=== PATIENT | female | born 1960 | race Caucasian/White ===

== ENCOUNTER 2017-08-17 07:58 | Outpatient (CLI) | payer MEDICARE, MEDICAID ==
[2017-08-17 13:57] LABS: BASOPHILS # (AUTO) 0.1 10^3/uL (0.0-0.1); BASOPHILS % (AUTO) 0.6 %; EOSINOPHILS # (AUTO) 0.1 10^3/uL (0.0-0.7); EOSINOPHILS % (AUTO) 1.6 %; HCT - HEMATOCRIT 39.4 % (37.0-47.0); HGB - HEMOGLOBIN 13.3 g/dL (12.0-16.0); LYMPHOCYTES # (AUTO) 2.7 10^3/uL (1.5-3.5); MEAN CORPUSCULAR HEMOGLOBIN 32.1 pg (27.0-31.0); MEAN CORPUSCULAR HGB CONC 33.9 g/dL (32.0-36.0); MEAN CORPUSCULAR VOLUME 94.9 fL (81.0-99.0); MEAN PLATELET VOLUME 8.5 fL (7.9-10.8); MONOCYTES # (AUTO) 0.5 10^3/uL (0.0-1.0); MONOCYTES % (AUTO) 6.8 %; NEUTROPHILS # (AUTO) 4.6 10^3/uL (1.5-6.6); RED BLOOD COUNT 4.15 10^6/uL (4.20-5.40)
[2017-08-17 14:25] LABS: ALBUMIN/GLOBULIN RATIO 1.5 (1.0-2.2); BILIRUBIN,TOTAL 0.5 mg/dL (0.2-1.0); BUN - BLOOD UREA NITROGEN 14 mg/dL (6-20); CALCIUM 9.3 mg/dL (8.5-10.3); CARBON DIOXIDE - CO2 29 mmol/L (21-32); CHLORIDE 105 mmol/L (101-111); CHOL/HDL RATIO 3.4 (<4.4); CHOLESTEROL 174 mg/dL; CREATININE 0.7 mg/dL (0.4-1.0); GFR - MDRD 87 (>89); GLUCOSE 89 mg/dL (70-100); HDL CHOLESTEROL 51 mg/dL; LDL/HDL RATIO 1.8 (<4.4); POTASSIUM 4.2 mmol/L (3.5-5.0); SODIUM 140 mmol/L (135-145); TOTAL PROTEIN 7.1 g/dL (6.7-8.2); TRIGLYCERIDES 167 mg/dL; VLDL CHOLESTEROL 33 mg/dL
== END 2017-08-17 07:59 | disposition home or self-care (01) ==
LOC: LAB.N 07:58
PROVIDERS: ATTEND Nurse Practitioner Gerontology
DX: I10 Essential (primary) hypertension (principal)
CPT/HCPCS: 36415; 80053; 80061; 84443; 85025

== ENCOUNTER 2017-12-24 07:39 | Day surgery (SDC) | payer MEDICARE, MEDICAID ==
[2017-12-24] MEDS ORDERED: LACTATED RINGERS 1,000 ML IV ONE ×3 (08:01→10:01)
--- NOTE | 2017-12-24 09:22 | HISTORY & PHYSICAL EXAMINATION ---
HPI - History of Present Illness HPI Comment/Other: Patient is here for first screening colonoscopy. Current Meds: CHANTIX 1 MG ORAL TABLET (VARENICLINE TARTRATE) 1/2 tab by mouth daily for 3 days, then 1/2 tab twice daily for 4 days, then 1 tab twice daily Allergies: Past Medical History: Reviewed history from 11/14/2016 and no changes required: Retinitis pigmentosa HTN Cancer Loose/Fragile Depression Anxiety Cervical cancer Past Surgical History: Digit surgery Family History Summary: Reviewed history Last on 09/07/2017 and no changes required:10/27/2017 Mother (biol.) - Has Family History of Hypertension - Entered On: 11/14/2016 Mother (biol.) - Has Family History of Other Cancer - Entered On: 11/14/2016 Father (biol.) - Has Family History of Alcoholism - Entered On: 11/14/2016 Mother (biol.) - Has Family History of Other Medical Problems - Cancer, melanoma - Entered On: 10/27/2017 Social History: Reviewed history from 06/01/2017 and no changes required: Alcohol Use - yes- rare Smoking History: Patient currently smokes every day. Patient has been counseled to quit. 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 Alcohol use: no Exercise: yes Times per week: 7 Type of Exercise: dancing Physical Exam General: well developed, well nourished, in no acute distress Lungs: clear bilaterally to A & P Heart: regular rate and rhythm, S1, S2 without murmurs, rubs, gallops, or clicks Abdomen: bowel sounds positive; abdomen soft and non-tender without masses, organomegaly, or hernias noted Pulses: pulses normal in all 4 extremities Extremities: no clubbing, cyanosis, edema, or deformity noted with normal full range of motion of all joints Cervical Nodes: no significant adenopathy Psych: alert and cooperative; normal mood and affect; normal attention span and concentration Impression & Recommendations: Problem # 1: screening for colon cancer will proceed with colonoscopy, PMH/PSH - Past Medical History Cardiovascular: positive: None Respiratory: positive: None Endocrine/Autoimmune: positive: None GI: positive: None : positive: None HEENT: positive: Other Psych: positive: None Musculoskeletal: positive: None Derm: positive: None MRSA Hx?: No - 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
[2017-12-24] MEDS ORDERED: MIDAZOLAM 2 MG/2 ML VIAL IVP ONE (09:32)
[2017-12-24] MEDS ORDERED: fentaNYL 100 MCG/2 ML VIAL IVP ONE (09:32)
[2017-12-24] MEDS ORDERED: PROPOFOL 200 MG/20 ML VIAL IVP ONE (10:20)
[2017-12-24 10:36] VITALS: BP 113/61
== END 2017-12-24 07:40 | disposition home or self-care (01) ==
LOC: SDS 07:39
PROVIDERS: ATTEND Surgery
PROC: 0DJD8ZZ Inspection of Lower Intestinal Tract, Via Natural or Artificial Opening Endoscopic (ICD-10-PCS; principal; 2017-12-24 08:45)
DX: Z12.11 Encounter for screening for malignant neoplasm of colon (principal); K57.30 Diverticulosis of large intestine without perforation or abscess without bleeding; K64.8 Other hemorrhoids; Z87.891 Personal history of nicotine dependence
CPT/HCPCS: G0121; J7120

== ENCOUNTER 2019-05-08 04:32 | Emergency (ER) | payer MEDICARE, MEDICAID ==
[2019-05-08 04:41] VITALS: BP 153/96
--- NOTE | 2019-05-08 05:35 | ED Physician Documentation ---
PD HPI URI - Stated complaint Stated Complaint: COUGH - Chief complaint Chief Complaint: Resp - History obtained from History obtained from: Patient - History of Present Illness Timing - onset: How many weeks ago (2) Timing details: Gradual onset Pain level now: 0 Associated symptoms: Chills, Sweats, Dry cough (despite chest congestion). 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 - Present Medications Home Medications: Ambulatory Orders Medication Instructions Recorded Confirmed Lisinopril 5 mg PO DAILY 05/08/19 05/08/19 guaiFENesin/CODEINE [Robitussin AC] 5 - 10 ml PO Q6H PRN #120 udc 05/08/19 - Allergies Allergies/Adverse Reactions: Allergies Allergy/AdvReac Type Severity Reaction Status Date / Time No Known Drug Allergies Allergy Verified 05/08/19 04:41 - Social History Does the pt smoke?: Yes Smoking Status: Current every day smoker Does the pt drink ETOH?: No ETOH Use: Beer Does the pt have substance abuse?: Yes Substance Use and Type: Marijuana - Immunizations Immunizations are current?: Yes - POLST Patient has POLST: No PD ED PE NORMAL - Vitals Vital signs reviewed: Yes - General General: Alert and oriented X 3, No acute distress, Well developed/nourished - HEENT HEENT: Moist mucous membranes - Neck Neck: Supple, no meningeal sign - Cardiac Cardiac: RRR, No murmur - Respiratory Respiratory: No respiratory distress, Other (RLL faint rhonchi) Results - Vitals Vitals: Oxygen O2 Source Room air - Rads (name of study) chest xray Radiology: Prelim report reviewed, See rad report PD MEDICAL DECISION MAKING - ED course Complexity details: reviewed results, re-evaluated patient, considered differential, d/w patient Departure - Departure Disposition: 01 Home, Self Care Clinical Impression: Bronchitis Condition: Good Instructions: ED Upper Resp Infec No Abx Tx Follow-Up: Magdalene Andujar ARNP [Primary Care Provider] - Prescriptions: guaiFENesin/CODEINE [Robitussin AC] 5 - 10 ml PO Q6H PRN #120 udc PRN Reason: Cough Discharge Date/Time: 05/08/19 07:42
--- NOTE | 2019-05-08 06:29 | XRAY Report ---
Reason: cough, chest congestion Procedure Date: 05/08/2019 Accession Number: [id number] / [id number] Procedure: XR - Chest 2 View X-Ray CPT Code: 43928 FULL RESULT: EXAM: CHEST RADIOGRAPHY EXAM DATE: 05/08/2019 06:17 AM. CLINICAL HISTORY: Cough, chest congestion. Nonproductive cough. COMPARISON: None. TECHNIQUE: 2 views. FINDINGS: Lungs/Pleura: No focal opacities evident. No pleural effusion. No pneumothorax. Normal volumes. Mediastinum: Heart and mediastinal contours are unremarkable. Other: Possible posterior medial left aiyana-diaphragmatic hernia. IMPRESSION: No acute cardiopulmonary abnormality demonstrated. RADIA
[2019-05-08] MEDS ORDERED: guaiFENesin/CODEINE 5 ML UDC PO STA (07:23)
== END 2019-05-08 07:42 | disposition home or self-care (01) ==
LOC: ED 04:32
DX: J40 Bronchitis, not specified as acute or chronic (principal); I10 Essential (primary) hypertension; F17.200 Nicotine dependence, unspecified, uncomplicated
CPT/HCPCS: 71046; 99281; 99283; A9270

== ENCOUNTER 2019-10-28 14:25 | Outpatient (CLI) | payer MEDICARE, MEDICAID ==
--- NOTE | 2019-10-28 15:17 | XRAY Report ---
Reason: RIB PAIN Procedure Date: 10/28/2019 Accession Number: [id number] / [id number] Procedure: XRN - Ribs w/PA Chest LT CPT Code: Final Report FULL RESULT: EXAM: LEFT RIB RADIOGRAPHY EXAM DATE: 10/28/2019 02:56 PM. CLINICAL HISTORY: RIB PAIN. Left rib pain. COMPARISON: CHEST 2 VIEW 05/08/2019 6:08 AM. TECHNIQUE: 2 views of the ribs. FINDINGS: Bones: No left rib fracture evident. Convex left upper thoracic scoliosis. Lungs: No focal opacities. No pneumothorax. No pleural effusions. Mediastinum: Heart and mediastinal contours are unremarkable. Other: None. IMPRESSION: No left rib fracture evident. RADIA
== END 2019-10-28 14:26 | disposition home or self-care (01) ==
LOC: DI.N 14:25
PROVIDERS: ATTEND Family Medicine
DX: R07.81 Pleurodynia (principal)

== ENCOUNTER 2020-09-26 07:21 | Outpatient (CLI) | payer MEDICARE, MEDICAID ==
[2020-09-26 11:44] LABS: BASOPHILS % (AUTO) 0.4 %; EOSINOPHILS # (AUTO) 0.2 10^3/uL (0.0-0.7); EOSINOPHILS % (AUTO) 1.6 %; HGB - HEMOGLOBIN 11.8 g/dL (12.0-16.0); LYMPHOCYTES # (AUTO) 2.2 10^3/uL (1.5-3.5); LYMPHOCYTES % (AUTO) 24.1 %; MEAN CORPUSCULAR HEMOGLOBIN 33.1 pg (27.0-31.0); MEAN CORPUSCULAR HGB CONC 31.9 g/dL (32.0-36.0); MEAN CORPUSCULAR VOLUME 103.6 fL (81.0-99.0); MEAN PLATELET VOLUME 10.3 fL (7.9-10.8); MONOCYTES % (AUTO) 11.1 %; NEUTROPHILS # (AUTO) 5.7 10^3/uL (1.5-6.6); NEUTROPHILS % (AUTO) 62.4 %; PLT - PLATELET COUNT 310 10^3/uL (130-450); RED BLOOD COUNT 3.57 10^6/uL (4.20-5.40); RED CELL DISTRIBUTION WIDTH 13.5 % (12.0-15.0); WHITE BLOOD COUNT 9.2 x10^3/uL (4.8-10.8)
[2020-09-26 12:00] LABS: ALBUMIN 3.7 g/dL (3.2-5.5); ALBUMIN/GLOBULIN RATIO 1.1 (1.0-2.2); ALKALINE PHOSPHATASE 63 IU/L (42-121); ALT ALANINE AMINOTRANSFERASE 29 IU/L (10-60); AST ASPARTATE AMINOTRANSFERASE 29 IU/L (10-42); BILIRUBIN,TOTAL 0.5 mg/dL (0.2-1.0); BUN - BLOOD UREA NITROGEN 13 mg/dL (6-20); CARBON DIOXIDE - CO2 26 mmol/L (21-32); CHLORIDE 105 mmol/L (101-111); CHOLESTEROL 155 mg/dL; CREATININE 0.6 mg/dL (0.4-1.0); GLUCOSE 97 mg/dL (70-100); HDL CHOLESTEROL 76 mg/dL; LDL CHOLESTEROL,CALCULATED 61 mg/dL; LDL/HDL RATIO 0.8 (<4.4); SODIUM 140 mmol/L (135-145); VLDL CHOLESTEROL 18 mg/dL
== END 2020-09-26 23:59 | disposition home or self-care (01) ==
LOC: LAB.WCP 07:21
PROVIDERS: ATTEND Nurse Practitioner Family
DX: I10 Essential (primary) hypertension (principal)
CPT/HCPCS: 36415; 80053; 80061; 83721; 84443; 85025

== ENCOUNTER 2020-11-14 03:02 | Emergency (ER) | payer MEDICARE, MEDICAID ==
--- NOTE | 2020-11-14 03:18 | ED Physician Documentation ---
PD HPI BACK PAIN - Stated complaint Stated Complaint: BACK PX - Chief complaint Chief Complaint: Back Pain - History obtained from History obtained from: Patient - History of Present Illness Timing - onset: How many weeks ago (1.5 weeks ago) Timing - details: Abrupt onset Pain level max: 8 Pain level now: 6 Location: Lower Associated symptoms: No: Fever, Weakness, Numbness, Incontinent of urine, Unable to urinate, Hematuria, Incontinent of stool Improves with: Rest Worsened by: Movement Contributing factors: Lifting Recently seen: Not recently seen - Additional information Additional information: c/o sudden onset mid/lower back pain 10 days ago when lifting heavy furniture. pain was severe and constant, limiting her to basic ADL, but then improving past few days and thus patient vacuumed her house today. this activity caused the pain to rapidly again become severe. denies numbness, weakness, fever, bowel or bladder incontinence. 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 - Present Medications Home Medications: Ambulatory Orders Medication Instructions Recorded Confirmed guaiFENesin/CODEINE [Robitussin AC] 5 - 10 ml PO Q6H PRN #120 udc 05/08/19 11/14/20 lisinopriL [Lisinopril] 5 mg PO DAILY 05/08/19 11/14/20 Cyclobenzaprine [Flexeril] 10 mg PO TID PRN #20 tablet 11/14/20 Oxycodone HCl/Acetaminophen 1 - 2 each PO Q6H PRN #14 tablet 11/14/20 [Percocet 5-325 mg Tablet] diazePAM [Valium] 5 mg PO QPM PRN #15 tablet 11/14/20 - Allergies Allergies/Adverse Reactions: Allergies Allergy/AdvReac Type Severity Reaction Status Date / Time No Known Drug Allergies Allergy Verified 05/08/19 04:41 - Social History Does the pt smoke?: Yes Smoking Status: Current every day smoker Does the pt drink ETOH?: No Does the pt have substance abuse?: Yes - Immunizations Immunizations are current?: Yes - POLST Patient has POLST: No PD ED PE NORMAL - Vitals Vital signs reviewed: Yes - General General: Alert and oriented X 3, No acute distress, Well developed/nourished - Abdomen Abdomen: Soft, Non tender - Back Back: No spinal TTP - Neuro Neuro: No motor deficit, No sensory deficit, Other (2+/4 bilateral patellar DTR, 5/5 bilateral dorsi/plantarflexion) Results - Vitals Vitals: Vital Signs - 24 hr 11/14/20 11/14/20 11/14/20 03:04 03:17 05:17 Temperature 36.8 C 36.8 C 36.8 C Heart Rate 79 79 72 Respiratory 20 20 19 Rate Blood Pressure 179/68 H 179/68 H 172/70 H O2 Saturation 97 97 98 11/14/20 06:21 Temperature 36.8 C Heart Rate 72 Respiratory 19 Rate Blood Pressure 172/70 H O2 Saturation 98 Oxygen O2 Source Room air PD MEDICAL DECISION MAKING - ED course Complexity details: reviewed results, re-evaluated patient, considered differential, d/w patient Departure - Departure Disposition: 01 Home, Self Care Clinical Impression: Lumbar compression fracture Condition: Good Instructions: ED Fx Comp Vertebral Follow-Up: CARSON SOLANO, MSN, BRAND COORDINATOR [Primary Care Provider] - Within 1 week Prescriptions: Cyclobenzaprine [Flexeril] 10 mg PO TID PRN #20 tablet PRN Reason: Spasms Oxycodone HCl/Acetaminophen [Percocet 5-325 mg Tablet] 1 - 2 each PO Q6H PRN #14 tablet PRN Reason: pain diazePAM [Valium] 5 mg PO QPM PRN #15 tablet PRN Reason: Spasms Comments: use the percocet for pain as needed per prescription instructions. You can use the flexeril as per prescription instructions during the day. At night before bed, you can take a dose of the valium IN PLACE of the flexeril. The valium will also have a muscle relaxant effect but also typically causes some degree of d rowsiness, which will might help you get some sleep while addressing the muscle spasm component of your pain. These medications are only meant for short-term use. Follow up with your primary care provider even if you are feeling better. Discharge Date/Time: 11/14/20 06:21
[2020-11-14] MEDS ORDERED: CYCLOBENZAPRINE 10 MG TABLET PO STA (03:45)
[2020-11-14] MEDS ORDERED: oxyCODONE 5 MG TABLET PO STA (03:45)
[2020-11-14 05:39] VITALS: BP 172/70
--- NOTE | 2020-11-14 08:15 | XRAY Report ---
PROCEDURE: Lumbar Spine 2 View INDICATIONS: low back pain TECHNIQUE: 3 views of the lumbar spine were acquired. COMPARISON: None. FINDINGS: Bones: 5 [id number] vertebrae are present. There is normal bony alignment. There is a L1 verte bral body compression fracture that results in a reduction of the vertebral height, measuring 2.2 cm at L1 and 3.7 cm at the L2, representing a 61% height reduction at L1, chronicity uncertain. No susp icious bony lesions. Soft tissues: Overlying bowel gas pattern is normal. No suspicious soft tissue calcifications. IMPRESSION: Expected degenerative disc disease and facet osteoarthritis over the lower half of the L S-spine for age. There is a chronicity-uncertain L1 compression fracture with a 61% height reduction when compared to the normal-appearing L2 immediately. MR scanning could establish acute versus chroni c status of this abnormality, if clinically desired. Reviewed by: Ankur Cui MD on 11/14/2020 8:13 AM PST Approved by: Ankur Cui MD on 11/14/2020 8:13 AM PST Station ID: [id number]
== END 2020-11-14 06:21 | disposition home or self-care (01) ==
LOC: ED 03:02
DX: M48.56XA Collapsed vertebra, not elsewhere classified, lumbar region, initial encounter for fracture (principal); X50.0XXA Overexertion from strenuous movement or load, initial encounter; Y93.89 Activity, other specified; M51.36 Other intervertebral disc degeneration, lumbar region; I10 Essential (primary) hypertension; F17.200 Nicotine dependence, unspecified, uncomplicated
CPT/HCPCS: 72100; 99283; A9270

== ENCOUNTER 2020-11-19 10:50 | Emergency (ER) | payer MEDICARE, MEDICAID ==
[2020-11-19 11:33] VITALS: BP 175/110
[2020-11-19] MEDS ORDERED: DEXAMETHASONE 10 MG/ML VIAL PO STA (13:09)
[2020-11-19] MEDS ORDERED: CHERRY SYRUP 10 ML UDC PO ONE (13:09)
[2020-11-19] MEDS ORDERED: KETOROLAC 60 MG/2 ML VIAL IM STA (13:09)
--- NOTE | 2020-11-19 13:12 | ED Physician Documentation ---
PD HPI BACK PAIN - Stated complaint Stated Complaint: BACK SPASM - Chief complaint Chief Complaint: Back Pain - History obtained from History obtained from: Patient - History of Present Illness Timing - onset: How many weeks ago (2) Timing - duration: Weeks (2) Timing - details: Abrupt onset, Still present Location: Lower Quality: Pain, Spasm, Sharp Associated symptoms: No: Fever, Weakness, Numbness, Incontinent of urine, Unable to urinate, Hematuria, Incontinent of stool Improves with: Rest, Ice Worsened by: Movement Contributing factors: Other (compression fracture at onset .) Similar symptoms before: Diagnosis - Additional information Additional information: 60-year-old female with acute onset of back pain 12 days ago has a compression fracture in L1 and she has run out of her pain medications and is unable to help with her disabled . She was seen on the in the emergency department and had x-ray done at that time showing the L1 compression fracture. She indicates that her initial injury was a lifting injury and she felt the onset immediately. She subsequently worsened over several days. 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 - Present Medications Home Medications: Ambulatory Orders Medication Instructions Recorded Confirmed lisinopriL [Lisinopril] 5 mg PO DAILY 05/08/19 11/14/20 diazePAM [Valium] 5 mg PO QPM PRN #15 tablet 11/14/20 11/19/20 Cyclobenzaprine [Flexeril] 10 mg PO TID PRN #20 tablet 11/19/20 Oxycodone HCl/Acetaminophen 1 - 2 each PO Q6H PRN #14 tablet 11/19/20 [Percocet 5-325 mg Tablet] amLODIPine [Norvasc] 11/19/20 - Allergies Allergies/Adverse Reactions: Allergies Allergy/AdvReac Type Severity Reaction Status Date / Time No Known Drug Allergies Allergy Verified 05/08/19 04:41 - Social History Does the pt smoke?: Yes Smoking Status: Current every day smoker Does the pt drink ETOH?: No Does the pt have substance abuse?: Yes - Immunizations Immunizations are current?: Yes - POLST Patient has POLST: No PD ED PE NORMAL - Vitals Vital signs reviewed: Yes (Hypertensive) - General General: Alert and oriented X 3, Well developed/nourished, Other (Appears to be in pain) - HEENT HEENT: Atraumatic, PERRL, EOMI - Respiratory Respiratory: No respiratory distress - Back Back: No CVA TTP, Other (midline tenerness at the bra line and tenderness to the paraspineous muscle of the lower lumbar spine. 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, No motor deficit, No sensory deficit, Normal speech Eye Opening: Spontaneous Motor: Obeys Commands Verbal: Oriented GCS Score: 15 - Psych Psych: Normal mood, Normal affect Results - Vitals Vitals: Vital Signs - 24 hr 11/19/20 11:30 Temperature 36.3 C L Heart Rate 100 Respiratory 22 Rate Blood Pressure 175/110 H O2 Saturation 97 Oxygen O2 Source Room air PD MEDICAL DECISION MAKING - ED course Complexity details: reviewed old records, reviewed results, re-evaluated patient, considered differential, d/w patient ED course: 60-year-old female with a recent compression fracture back is having difficulty with pain control she has run out of her pain medications and she is not able to get pain medication through her primary care doctor as they are unable to see her today. She is administered dexamethasone and Toradol here in the emergency department we will replace her back on the oxycodone and Flexeril. Departure - Departure Disposition: 01 Home, Self Care Clinical Impression: Lumbar compression fracture Qualifiers: Encounter type: sequela Lumbar vertebra fracture level: L1 Qualified Code(s): S32.010S - Wedge compression fracture of first lumbar vertebra, sequela Instructions: ED Fx Comp Vertebral Follow-Up: CARSON SOLANO, MSN, FANCY WIRE DRAWER [Primary Care Provider] - Prescriptions: Cyclobenzaprine [Flexeril] 10 mg PO TID PRN #20 tablet PRN Reason: Spasms Oxycodone HCl/Acetaminophen [Percocet 5-325 mg Tablet] 1 - 2 each PO Q6H PRN #14 tablet PRN Reason: pain Discharge Date/Time: 11/19/20 13:58
== END 2020-11-19 13:58 | disposition home or self-care (01) ==
LOC: ED 10:50
DX: S32.010A Wedge compression fracture of first lumbar vertebra, initial encounter for closed fracture (principal); X50.0XXA Overexertion from strenuous movement or load, initial encounter; I10 Essential (primary) hypertension; F17.200 Nicotine dependence, unspecified, uncomplicated
CPT/HCPCS: 96372; 99283; 99284; A9270

== ENCOUNTER 2020-12-07 12:46 | Outpatient (CLI) | payer MEDICARE, MEDICAID ==
--- NOTE | 2020-12-07 15:25 | MRI Report ---
PROCEDURE: Lumbar Spine W/O INDICATIONS: LOW BACK PAIN TECHNIQUE: Noncontrast sagittal T1 spin echo and T2 fast echo, sagittal STIR, axial T1 and T2 fast spin echo thr ough the lumbar spine. In cases with scoliosis, additional coronal T2 fast spin echo may be performe d. COMPARISON: Plain films dated 11/14/2020 FINDINGS: Image quality: Excellent. Alignment and Curvature: 5 lumbar type vertebral bodies are present by plain film. Alignment is withi n normal limits.. Bone Marrow: Marrow is of normal overall signal. There is moderate wedging of the L1 vertebral body which demonstrates linear low T1/T2 signal intensity within its mid/superior aspect, as well as moder ate surrounding ill-defined STIR signal. There is mild chronic wedging of L5 which demonstrates a Sara morl's node within its superior endplate. There is moderate reactive signal within the endplates mikayla cent to the L4-L5 and L5-S1 intervertebral discs. Spinal Cord: Conus medullaris terminates at the upper L1 level. Visualized cord demonstrates normal signal and size. Paraspinous Soft Tissues: No paravertebral masses. T12-L1: There is mild retropulsion at the superior L1 level, measured at roughly 6 mm. There is mild canal stenosis. Mild bilateral foraminal stenosis. L1-L2: Normal in appearance. L2-L3: Normal in appearance. L3-L4: Mild disc desiccation. Mild facet and ligament flavum hypertrophy. Mild epidural lipomatosis . No significant canal stenosis. Mild bilateral foraminal stenosis. L4-L5: Mild disc height loss and desiccation. Mild diffuse disc bulge. Mild facet and ligament flav um hypertrophy. Mild canal stenosis. Mild bilateral foraminal stenosis. L5-S1: Moderate disc height loss and desiccation. Mild diffuse disc bulge with superimposed left pa racentral protrusion. Mild facet and ligament flavum hypertrophy. Mild canal stenosis. Moderate bilat eral foraminal stenosis. Mild posterior deviation and compression of the left S1 nerve root within th e lateral recess. IMPRESSION: 1. Moderate subacute L1 compression fracture. There is mild retropulsion at the superior L1 level wit h mild associated canal stenosis. 2. Multilevel degenerative disc and facet disease, in addition to epidural lipomatosis and ligamentum flavum hypertrophy. 3. Mild multilevel canal stenoses. Multilevel foraminal stenoses, worst at L5-S1, where there are mod erate foraminal stenoses present. 4. Disc protrusion at L5-S1, causing compression and posterior deviation of the left S1 nerve root wi thin the lateral recess. Recommend correlation with clinical symptoms to ascertain relevance of this finding. Reviewed by: Gianni Huff MD on 12/07/2020 3:24 PM PST Approved by: Gianni Huff MD on 12/07/2020 3:24 PM PST Station ID: [id number]
--- OUTSIDE RECORDS SUMMARY | 2020-12-12 01:39 | EXTERNAL MEDICAL SUMMARY RPT | Continuity of Care Document ---
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 2013-06-16 08:37 BACKACHE NOS [facility] 2013-06-16 08:37 INSOMNIA, UNSPECIFIED [facility] dical [place] 2014-02-16 10:42 TOBACCO USE DISORDER [facility] 2014-02-16 10:42 HYPERTENSION NOS [facility] 2014-02-16 10:42 ATROPHIC VAGINITIS [facility] 2014-02-16 10:42 ROUTINE MEDICAL EXAM [facility] 2014-03-06 13:19 HYPERTENSION NOS [facility] 2014-03-06 13:19 OTH MED,LT,CURRENT USE [facility] 2014-07-26 11:50 HAIR DISEASES NEC [facility] 2014-08-14 16:13 SCABIES [facility] 2015-11-06 09:00 HYPERLIPIDEMIA, UNSPECIFIED [facility] [place] 2015-11-06 09:00 ESSENTIAL (PRIMARY[facility] 2015-11-06 09:23 NICOTINE DEPENDENCE, [facility] UNSPECIFIED, UNCOMPLICATED 2015-11-06 09:23 [facility]SS[facility] (PRIMARY) [facility] HYP[facility]ION 2017-08-17 07:58 [facility] 2017-10-02 10:18 ENCNTR SCREEN MAMMOGRAM FOR [facility] MALIGNANT NEOPLASM OF BREAST 2017-12-24 07:39 DVRTCLOS OF LG INT W/O [facility] PERFORATION OR ABSCESS W/O BLEEDING 2017-12-24 07:39 OTHER HEMORRHOIDS [facility] 2017-12-24 07:39 ENCOUNTER FOR SCREENING FOR [facility] MALIGNANT NEOPLASM OF COLON 2017-12-24 07:39 PERSONAL HISTORY OF NICOTINE [facility] DEPENDENCE 2019-05-08 04:32 NICOTINE DEPENDENCE, [facility] UNSPECIFIED, UNCOMPLICATED 2019-05-08 04:32 ESSENTIAL (PRIMARY) [facility] HYPERTENSION 2019-05-08 04:32 BRONCHITIS, NOT SPECIFIED [facility] ACUTE OR CHRONIC 2019-05-08 04:32 COUGH [facility] Medic [facility] [place] 2019-10-28 14:25 PLEURODYNIA [facility] [place] 2020-09-25 00:00:00 TSH WITH REFLEX TO FT4 [facility] [place] [facility] 2020-09-25 00:00:00 Chronic airway obstruction, not [facility] elsewhere classified [place] [facility] 2020-09-25 00:00:00 COMPREHENSIVE METABOLIC PANEL [facility] [place] [facility] 2020-09-25 00:00:00 LIPIDS SCREEN [facility] Prim sirisha [facility] [place] 2020-09-25 00:00:00 CBC W/Diff/Plt [facility] [place] 2020-09-25 00:00:00 Chronic obstructive pulmonary [facility] disease, unspecified [place] [facility] 2020-09-25 00:00:00 [facility] [place] [facility] 2020-09-25 00:00:00 Health-related behavior [facility] [place] [facility] 2020-09-25 00:00:00 Exercise [facility] Prim sirisha [facility] [place] [facility] 2020-09-25 00:00:00 Details of drug misuse behavior [facility] [place] 2020-09-25 00:00:00 Little [facility]? [facility] 2020-09-25 00:00:00 Feeling down, depressed, or [facility] hopeless? [facility] 2020-09-25 00:00:00 Patient Health Questionnaire 2 [facility] item (PHQ[facility] total score [place] [facility] 2020-09-25 00:00:00 Alcohol [facility] [place] [facility] 2020-09-25 00:00:00 Total score? [facility] [place] [facility] 2020-09-25 00:00:00 [facility] 2020-09-26 00:00 ESSENTIAL (PRIMARY) [facility] HYPERTENSION 2020-09-26 07:21 ESSENTIAL (PRIMARY) [facility] HYPERTENSION 2020-11-14 03:02 COLLAPSED VERTEBRA, NEC, LUMBAR [facility] REGION, INIT 2020-11-14 03:02 OTHER [facility]BRAL DISC [facility], LUM[facility] REG 2020-11-14 03:02 OVEREXERTION FROM STRENUOUS [facility] MOVEMENT OR LOAD, INIT 2020-11-14 03:02 NICOTINE DEPENDENCE, [facility] ical [place] UNSPECIFIED, UNCOMPLICATED 2020-11-14 03:02 ESSENTIAL (PRIMARY) [facility] HYPERTENSION 2020-11-14 03:[address] [facility] DEGENERATION, LUMBAR REGION 2020-11-14 03:02 LOW BACK PAIN [facility] 2020-11-14 03:02 ACTIVITY, OTHER SPECIFIED [facility] 2020-11-19 00:00:00 Closed fracture [facility] vertebra without mention of [place] [facility] spinal cord injury 2020-11-19 00:00:00 Unspecified [facility] unspecified lumbar vertebra, [place] [facility] initial encounter for closed fracture 2020-11-19 10:50 NICOTINE DEPENDENCE, [facility] UNSPECIFIED, UNCOMPLICATED 2020-11-19 10:50 ESSENTIAL (PRIMARY) [facility] HYPERTENSION 2020-11-19 10:50 WEDGE COMPRESSION FRACTURE OF [facility] LUMBAR VERTEBR 2020-11-19 10:50 OVEREXERTION FROM STRENUOUS [facility] MOVEMENT OR LOAD, INIT 2020-11-20 00:00:00 MRI LUMBAR SPINE WO [facility] 2020-11-20 00:00:00 Health-related behavior [facility] Primary Care [facility] 2020-11-20 00:00:00 Exercise [facility] Prim sirisha [facility] 2020-11-20 00:00:00 Details of drug misuse behavior [facility] 2020-11-20 00:00:00 Alcohol use [facility] Prim [facility] 2020-11-20 00:00:00 Total score? [facility] Prim [facility] 2020-11-20 00:00:00 Former smoker [facility] Prim [facility] 2020-12-06 10:39 UNSP FRACTURE OF UNSP LUMBAR [facility] VERTEBRA, INIT FOR CLOS FX 2020-12-06 10:45 UNSP FRACTURE OF UNSP LUMBAR [facility] VERTEBRA, INIT FOR CLOS FX 2020-12-07 12:46 LOW BACK PAIN [facility] [place] 2020-12-07 13:00 LOW BACK PAIN [facility] [place] Allergies date description facility NO ALLERGY INFORMATION AVAILABLE [facility] PENICILLINS [facility] NO KNOWN ALLERGIES [facility] [place] SHELLFISH DERIVED [facility] [place] PEAS [facility] [place] CODEINE [facility] [place] ACETAMINOPHEN [facility] [place] PENICILLIN [facility] [place] No Known Drug Allergies [facility] No Known Drug Allergies [facility] No Known Drug Allergies [facility] sulfa drug [facility] [place] acetaminophen-oxycodone [facility] Morphine Sulfate [facility] [place] Percocet [facility] NO KNOWN [facility]ERG[facility] PSEUDOEPHEDRINE HCL [facility] PENICILLINS [facility] SULFA (SULFONAMIDE ANTIBIOTICS) [facility] NO KNOWN ALLERGIES [facility] ACETAZOLAMIDE [facility] HYDROCHLOROTHIAZIDE [facility] CLINDAMYCIN [facility] CIPROFLOXACIN [facility] SIMVASTATIN [facility] GABAPENTIN [facility] TRA[facility]ODONE [facility] ATORVASTATIN [facility] QUETIAPINE [facility] AMLODIPINE-BENAZEPRIL [facility] dical Center HYDROCODONE-ACETAMINOPHEN [facility] NITROFURANTOIN MONOHYD/M-CRYST [facility] No Known Drug Allergies [facility] ADHESIVE \T\ TAPE [facility] HYDROCODONE [facility] HYDROMORPHONE HCL [facility]ONE [facility] LISINOPRIL [facility] HYDROCODONE-ACETAMINOPHEN [facility] HYDROMORPHONE HCL [facility] [id number] REDUCTASE INHIBITORS [facility] MORPHINE [facility] TETRACYCLINE [facility] CIPROFLOXACIN [facility] AMOXICILLIN [facility] TRAMADOL [facility] LATEX [facility] No Known Drug Allergies [facility] No Known Drug Allergies [facility] Medications date description facility 2020-09-25 00:00:00 null [facility] [place] [facility] 2020-09-25 00:00:00 null [facility] [place] [facility] 2020-09-25 00:00:00 [facility] [place] [facility] 2020-09-25 00:00:00 null [facility] [place] [facility] 2020-09-25 00:00:00 FLUTICASONE PROPIONATE [facility] [place] [facility] 2020-09-25 00:00:00 ALBUTEROL SULFATE [facility] [place] [facility] 2020-09-25 00:00:00 ALBUTEROL SULFATE [facility] [place] [facility] 2020-09-25 00:00:00 [facility]ONE [facility]IONATE [facility] [place] [facility] 2020-09-30 00:00:00 null [facility] [place] [facility] 2020-09-30 00:00:00 [facility] [place] [facility] 2020-09-30 00:00:00 FLUTICASONE PROPIONATE [facility] [place] [facility] 2020-09-30 00:00:00 FLUTICASONE PROPIONATE [facility] [place] [facility] 2020-10-29 00:00:00 null [facility] [place] [facility] 2020-10-29 00:00:00 null [facility] [place] [facility] 2020-10-29 00:00:00 null [facility] [place] [facility] 2020-10-29 00:00:00 [facility] [place] [facility] 2020-10-29 00:00:00 LOSARTAN POTASSIUM [facility] [place] [facility] 2020-10-29 00:00:00 AMLODIPINE BESYLATE [facility] [place] [facility] 2020-10-29 00:00:00 AMLODIPINE BESYLATE [facility] [place] [facility] 2020-10-29 00:00:00 LOSARTAN POTASSIUM [facility] [place] [facility] 2020-11-14 00:00:00 null [facility] [place] [facility] 2020-11-14 00:00:00 null [facility] [place] [facility] 2020-11-14 00:00:00 null [facility] [place] [facility] 2020-11-14 00:00:00 null [facility] [place] [facility] 2020-11-14 00:00:00 null [facility] [place] [facility] 2020-11-14 00:00:00 null [facility] [place] [facility] 2020-11-14 00:00:00 OXYCODONE[facility]INOPHEN [facility] [place] [facility] 2020-11-14 00:00:00 DIAZEPAM [facility] [place] [facility] 2020-11-14 00:00:00 CYCLOBENZAPRINE HCL [facility] [place] [facility] 2020-11-14 00:00:00 OXYCODONE[facility]INOPHEN [facility] [place] [facility] 2020-11-14 00:00:00 DIAZEPAM [facility] [place] [facility] 2020-11-14 00:00:00 CYCLOBENZAPRINE [facility] [place] [facility] 2020-11-14 00:00:00 Diazepam [facility] 2020-11-19 00:00:00 Oxycodone Hcl/Acetaminophen [facility] 2020-11-19 00:00:00 Amlodipine [facility] 2020-11-19 00:00:00 Cyclobenzaprine [facility] 2020-11-20 00:00:00 null [facility] [place] [facility] 2020-11-20 00:00:00 null [facility] [place] [facility] 2020-11-20 00:00:00 null [facility] [place] [facility] 2020-11-20 00:00:00 null [facility] [place] [facility] 2020-11-20 00:00:00 METHOCARBAMOL [facility] [place] [facility] 2020-11-20 00:00:00 CALCITONIN (SALMON) [facility] [place] [facility] 2020-11-20 00:00:00 METHOCARBAMOL [facility] [place] [facility] 2020-11-20 00:00:00 CALCITONIN (SALMON) [facility] [place] [facility] Procedures date description facility 2020-09-25 00:00:00 TSH WITH REFLEX TO FT4 [facility] [place] [facility] date description facility 2020-09-25 00:00:00 COMPREHENSIVE METABOLIC PANEL [facility] [place] [facility] date description facility 2020-09-25 00:00:00 LIPIDS SCREEN [facility] [place] [facility] date description facility 2020-09-25 00:00:00 [facility]Diff[facility] [place] [facility] date description facility 2020-09-25 00:[facility] [place] [facility] date description facility 2020-11-14 00:00:00 X-ray of lumbar spine, two views [facility] date description facility 2020-11-20 00:00:00 MRI LUMBAR SPINE WO [facility] [place] [facility] date description facility 2020-11-20 00:00:00 Physical Therapy [facility] [place] [facility] date description facility 2020-11-20 00:00:00 [facility] [place] [facility] Results Social History date description facility 2020-09-25 00:00:00 [facility] [place] [facility] date description facility 2020-11-20 00:00:00 [facility] [place] [facility] Social History date description facility 2020-09-25 00:00:00 [facility]oker [facility] [place] [facility] date description facility 2020-11-20 00:00:00 [facility] [place] [facility] date description facility [id number]
== END 2020-12-07 12:47 | disposition home or self-care (01) ==
LOC: DI 12:46
PROVIDERS: ATTEND Nurse Practitioner Family
DX: M48.56XA Collapsed vertebra, not elsewhere classified, lumbar region, initial encounter for fracture (principal); M48.061 Spinal stenosis, lumbar region without neurogenic claudication; M51.27 Other intervertebral disc displacement, lumbosacral region; E88.2 Lipomatosis, not elsewhere classified; M47.816 Spondylosis without myelopathy or radiculopathy, lumbar region; M51.36 Other intervertebral disc degeneration, lumbar region; M47.817 Spondylosis without myelopathy or radiculopathy, lumbosacral region; M51.37 Other intervertebral disc degeneration, lumbosacral region; M48.07 Spinal stenosis, lumbosacral region

== ENCOUNTER 2022-01-09 07:07 | Outpatient (CLI) | payer MEDICARE, MEDICAID ==
[2022-01-09 12:29] LABS: BASOPHILS # (AUTO) 0.1 10^3/uL (0.0-0.1); BASOPHILS % (AUTO) 0.5 %; EOSINOPHILS # (AUTO) 0.2 10^3/uL (0.0-0.7); EOSINOPHILS % (AUTO) 2.2 %; HCT - HEMATOCRIT 45.3 % (37.0-47.0); HGB - HEMOGLOBIN 14.7 g/dL (12.0-16.0); LYMPHOCYTES # (AUTO) 2.9 10^3/uL (1.5-3.5); LYMPHOCYTES % (AUTO) 28.4 %; MEAN CORPUSCULAR HEMOGLOBIN 33.2 pg (27.0-31.0); MEAN CORPUSCULAR HGB CONC 32.5 g/dL (32.0-36.0); MEAN CORPUSCULAR VOLUME 102.3 fL (81.0-99.0); MEAN PLATELET VOLUME 9.8 fL (7.9-10.8); MONOCYTES # (AUTO) 0.7 10^3/uL (0.0-1.0); MONOCYTES % (AUTO) 7.3 %; NEUTROPHILS # (AUTO) 6.2 10^3/uL (1.5-6.6); NEUTROPHILS % (AUTO) 61.2 %; PLT - PLATELET COUNT 355 10^3/uL (130-450); RED BLOOD COUNT 4.43 10^6/uL (4.20-5.40); RED CELL DISTRIBUTION WIDTH 13.6 % (12.0-15.0); WHITE BLOOD COUNT 10.2 x10^3/uL (4.8-10.8)
[2022-01-09 13:01] LABS: ALBUMIN 4.2 g/dL (3.2-5.5); ALBUMIN/GLOBULIN RATIO 1.2 (1.0-2.2); ALKALINE PHOSPHATASE 62 IU/L (42-121); ALT ALANINE AMINOTRANSFERASE 21 IU/L (10-60); AST ASPARTATE AMINOTRANSFERASE 24 IU/L (10-42); BUN - BLOOD UREA NITROGEN 15 mg/dL (6-20); CALCIUM 9.2 mg/dL (8.5-10.3); CARBON DIOXIDE - CO2 28 mmol/L (21-32); CHLORIDE 99 mmol/L (101-111); CHOL/HDL RATIO 2.6 (<4.4); CHOLESTEROL 220 mg/dL; CREATININE 0.8 mg/dL (0.4-1.0); GFR - MDRD 73 (>89); GLUCOSE 82 mg/dL (70-100); HDL CHOLESTEROL 86 mg/dL; LDL CHOLESTEROL,CALCULATED 92 mg/dL; LDL/HDL RATIO 1.1 (<4.4); POTASSIUM 4.3 mmol/L (3.5-5.0); SODIUM 139 mmol/L (135-145); TOTAL PROTEIN 7.8 g/dL (6.7-8.2); TRIGLYCERIDES 208 mg/dL; VLDL CHOLESTEROL 42 mg/dL
[2022-01-09 13:03] LABS: THYROID STIMULATING HORMONE 1.7 uIU/mL (0.34-5.60)
== END 2022-01-09 07:08 | disposition home or self-care (01) ==
LOC: LAB.N 07:07
PROVIDERS: ATTEND Nurse Practitioner
DX: R53.83 Other fatigue (principal); Z13.220 Encounter for screening for lipoid disorders
CPT/HCPCS: 36415; 80053; 80061; 81001; 83721; 84443; 85025; 87086

== ENCOUNTER 2022-03-09 13:48 | Outpatient (CLI) | payer MEDICARE | END 2022-03-09 13:49 | disposition short-term general hospital (02) | LOC: EMS 13:48 | DX: Z04.3 Encounter for examination and observation following other accident (principal); M25.552 Pain in left hip | CPT/HCPCS: A0425; A0427 ==

== ENCOUNTER 2023-01-22 09:50 | Outpatient (CLI) | payer MEDICARE ==
[2023-01-22 12:02] LABS: BASOPHILS % (AUTO) 0.4 %; EOSINOPHILS # (AUTO) 0.2 10^3/uL (0.0-0.7); EOSINOPHILS % (AUTO) 1.8 %; HCT - HEMATOCRIT 40.9 % (37.0-47.0); HGB - HEMOGLOBIN 13.6 g/dL (12.0-16.0); LYMPHOCYTES % (AUTO) 21.8 %; MEAN CORPUSCULAR HEMOGLOBIN 36.5 pg (27.0-31.0); MEAN CORPUSCULAR HGB CONC 33.3 g/dL (32.0-36.0); MEAN CORPUSCULAR VOLUME 109.7 fL (81.0-99.0); MONOCYTES # (AUTO) 0.9 10^3/uL (0.0-1.0); MONOCYTES % (AUTO) 9.2 %; NEUTROPHILS # (AUTO) 6.1 10^3/uL (1.5-6.6); NEUTROPHILS % (AUTO) 66.6 %; PLT - PLATELET COUNT 314 10^3/uL (130-450); RED BLOOD COUNT 3.73 10^6/uL (4.20-5.40); RED CELL DISTRIBUTION WIDTH 12.7 % (12.0-15.0); WHITE BLOOD COUNT 9.2 x10^3/uL (4.8-10.8)
[2023-01-22 12:26] LABS: FECAL OCCULT BLOOD (FIT) POSITIVE (NEGATIVE)
[2023-01-22 13:14] LABS: ALBUMIN 4.1 g/dL (3.2-5.5); ALBUMIN/GLOBULIN RATIO 1.3 (1.0-2.2); ALKALINE PHOSPHATASE 104 IU/L (42-121); ALT ALANINE AMINOTRANSFERASE 43 IU/L (10-60); AST ASPARTATE AMINOTRANSFERASE 48 IU/L (10-42); BILIRUBIN,TOTAL 0.8 mg/dL (0.2-1.0); BUN - BLOOD UREA NITROGEN 14 mg/dL (6-20); CALCIUM 9.6 mg/dL (8.5-10.3); CARBON DIOXIDE - CO2 30 mmol/L (21-32); CHLORIDE 100 mmol/L (101-111); CHOL/HDL RATIO 2.6 (<4.4); CHOLESTEROL 219 mg/dL; GFR - MDRD 56 (>89); GLUCOSE 109 mg/dL (70-100); HDL CHOLESTEROL 84 mg/dL; LDL CHOLESTEROL,CALCULATED 115 mg/dL; LDL/HDL RATIO 1.4 (<4.4); POTASSIUM 4.5 mmol/L (3.5-5.0); SODIUM 137 mmol/L (135-145); TOTAL PROTEIN 7.3 g/dL (6.7-8.2); TRIGLYCERIDES 99 mg/dL; VLDL CHOLESTEROL 20 mg/dL
== END 2023-01-22 09:51 | disposition home or self-care (01) ==
LOC: LAB.N 09:50
PROVIDERS: ATTEND Nurse Practitioner
DX: I10 Essential (primary) hypertension (principal); Z13.220 Encounter for screening for lipoid disorders; Z12.11 Encounter for screening for malignant neoplasm of colon
CPT/HCPCS: 36415; 80053; 80061; 82274; 83721; 85025

== ENCOUNTER 2023-01-22 10:07 | Outpatient (CLI) | payer MEDICARE ==
--- NOTE | 2023-01-23 10:24 | Mammography Report ---
BILATERAL DIGITAL SCREENING MAMMOGRAM 3D/2D: 01/22/2023 CLINICAL: Routine screening. Comparison is made to exams dated: 10/02/2017 mammogram, 12/27/2010 mammogram, and 10/10/2009 mammogra m - [facility]. Both breasts are extremely dense, which lowers the sensitivity of mammography (category d />75% gland ular tissue). No significant masses, calcifications, or other findings are seen in either breast. There has been no significant interval change. IMPRESSION: NEGATIVE There is no mammographic evidence of malignancy. A 1 year screening mammogram is recommended. Based on the Tyrer Cuzick model (a risk assessment model) the patients lifetime risk is 11.5% and he r 10 year risk is 4.9%. According to the ACR, ACS, and NCCN guidelines, an annual breast MRI exam deandre ng with mammogram is recommended if the patients lifetime risk is 20% or greater. This exam was interpreted at Station ID: [id number]. NOTE: For mammograms, a report in lay terms will be sent to the patient. Approximately 15% of breast malignancies will not be visualized mammographically. In the management of a palpable breast mass, a negative mammogram must not discourage biopsy of a clinically suspicious lesion. Electronically Signed By: Tony ordoñez/seth:01/22/2023 11:42:05 letter sent: No_Letter ACR BI-RADS Category 1: Negative 3341F PARENCHYMAL PATTERN: (VD) - The breast(s) demonstrate(s) extremely dense parenchyma, limiting the sen sitivity of mammography. BI-RADS CATEGORY: (1) - 1 RECOMMENDATION: (ANNUAL) - Recommend routine annual screening mammography. [id number] 1 year screening LATERALITY: (B)
== END 2023-01-22 10:08 | disposition home or self-care (01) ==
LOC: DI.N 10:07
DX: Z12.31 Encounter for screening mammogram for malignant neoplasm of breast (principal)

== ENCOUNTER 2023-03-09 11:20 | Outpatient (CLI) | payer MEDICARE ==
--- NOTE | 2023-03-09 12:40 | Ultrasound Report ---
PROCEDURE: Abdomen Limited INDICATIONS: ABD LUMP TECHNIQUE: Real-time focused scanning was performed of the abdomen, with image documentation. COMPARISONS: None. Findings and impression: Corresponding to patient's palpable abnormality is a renal mass measuring 8.5 x 8.2 x 8.5 cm. 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 Recommend follow-up with renal mass protocol CT or MRI. Reviewed by: Tony Damon MD on 03/09/2023 12:39 PM PDT Approved by: Tony Damon MD on 03/09/2023 12:39 PM PDT Station ID: [id number]
== END 2023-03-09 11:21 | disposition home or self-care (01) ==
LOC: DI 11:20
PROVIDERS: ATTEND Nurse Practitioner
DX: N28.89 Other specified disorders of kidney and ureter (principal)

== ENCOUNTER 2023-03-10 11:57 | Day surgery (SDC) | payer MEDICARE ==
[2023-03-10] MEDS ORDERED: PROPOFOL 500 MG/50 ML 500 MG/50 ML VIAL ONE ×3 (12:39→14:03)
[2023-03-10] MEDS ORDERED: LACTATED RINGERS 1,000 ML IV ONE (12:43)
--- NOTE | 2023-03-10 12:54 | ANESTHESIA ---
Pre-Anesthesia VS, & Labs - Diagnosis positive fit test - Procedure colonoscopy Vital Signs: Temp Pulse Resp BP Pulse Ox O2 Flow Rate 36.6 C 86 16 147/96 H 99 03/10/23 12:24 03/10/23 12:24 03/10/23 12:24 03/10/23 12:24 03/10/23 12:24 Height: 5 ft 4 in Weight (kg): 56 kg Body Mass Index: 21.2 BMI Classification: Normal - NPO Other - Is Patient ?: No Home Medications and Allergies Home Medications: Ambulatory Orders Losartan Potassium [Cozaar] 100 mg PO DAILY 03/02/23 hydroCHLOROthiazide [Hydrodiuril] 12.5 mg PO DAILY 03/02/23 amLODIPine [Norvasc] 5 mg PO DAILY 11/19/20 Losartan Potassium [Cozaar] 100 mg PO DAILY 03/02/23 hydroCHLOROthiazide [Hydrodiuril] 12.5 mg PO DAILY 03/02/23 Allergies/Adverse Reactions: Allergies Allergy/AdvReac Type Severity Reaction Status Date / Time No Known Drug Allergies Allergy Verified 05/08/19 04:41 Anes History & Medical History - Medical History Cardiovascular: reports: Hypertension Pulmonary: reports: None Gastrointestinal: reports: Hemorrhoids Urinary: reports: None Musculoskeletal: reports: None Endocrine/Autoimmune: reports: None Skin: reports: None Smoking Status: Current every day smoker - Surgical History General: reports: Colonoscopy, Other Gynecologic: reports: Hysterectomy Orthopedic: reports: Other Exam General: Alert, Cooperative Dental: WNL Mouth Opening: Greater than 4 Fingerbreadths Neck Mobility: Normal Mallampati classification: II Thyromental Distance: greater than 6 cm Plan Anesthesia Type: Total IV Consent for Procedure(s) Verified and Reviewed: Yes Code Status: Attempt Resuscitation ASA classification: 2-Mild systemic disease Is this case an emergency?: No
[2023-03-10] MEDS ORDERED: LIDOCAINE-MPF 2% 5 ML VIAL ONE (13:37)
[2023-03-10] MEDS ORDERED: MIDAZOLAM 2 MG/2 ML VIAL ONE (14:09)
[2023-03-10] MEDS ORDERED: LACTATED RINGERS 250 ML IV ONE (14:24)
[2023-03-10] MEDS ORDERED: DIATR MEGLU/DIATRIZOATE SODIUM 120 ML BOTTLE ONE (15:02)
[2023-03-10 15:03] VITALS: BP 109/83
--- NOTE | 2023-03-10 15:31 | ANESTHESIA POST OP EVALUATION ---
Anesthesia Post Eval - Post Anesthesia Eval Vitals: Last Vital Signs Temp 36 C L 03/10/23 15:02 Pulse 70 03/10/23 15:02 Resp 16 03/10/23 15:02 BP 109/83 H 03/10/23 15:02 Pulse Ox 99 03/10/23 15:02 O2 Flow Rate CV Function Including HR & BP: Stable Pain Control: Satisfactory Nausea & Vomiting: Negative Mental Status: Baseline Respiratory Status: Airway Patent Hydration Status: Satisfactory Anesthesia Complications: None
--- NOTE | 2023-03-10 16:40 | CT Report ---
PROCEDURE: ABDOMEN/PELVIS WO INDICATIONS: incomplete colonoscopy (scope passed to 30cm) TECHNIQUE: Noncontrast 5 mm thick sections acquired from the diaphragms to the symphysis. 5 mm coronal and sagi ttal reformats were then performed. For radiation dose reduction, the following was used: automated exposure control, adjustment of mA and/or kV according to patient size. COMPARISON: 03/09/2023 ultrasound FINDINGS: Image quality: Good Lower chest: partially seen masslike opacity in the lingula. Suspected scarring and atelectasis also present. Small hiatal hernia. Borderline large heart. Solid organs: Suspected focal fat near falciform ligament of the liver. Liver is otherwise unremarkab le. Gallbladder is unremarkable. No pathologic dilation of the biliary tree or pancreatic duct. No sp lenomegaly. No adrenal nodules. A large right renal masses seen measuring about 7 x 8 x 9 cm. This corresponds to sonographic abnorma lity. No hydronephrosis. Vessels and lymph nodes: No pathologic adenopathy by size criteria within the limits of noncontrast e valuation. No abdominal aortic aneurysm. There are atherosclerotic calcifications. Bowel and peritoneum: No evidence of small bowel obstruction. No pathologic ascites. No free air is identified. Tortuous large bowel. Contrast is seen filling the large bowel. There is reflux of contrast into the small bowel. No proximal or mid mass is identified. There are colonic diverticula as well as wall thi ckening involving mostly the sigmoid colon. Body wall: Unremarkable Pelvis: Bladder is unremarkable. Uterus is absent. Bones: Fracture deformity and fixation hardware involving the left proximal femur. Degenerative manzo es without acute or suspicious osseous abnormality. Rib fractures may not be acute. Age-indeterminate fracture deformity of the L5 vertebral body and L1 vertebral body, these were present on prior MRIs. IMPRESSION: Colonic diverticula and indeterminate wall thickening of the sigmoid colon, which would require direc t visualization and pathology to further characterize. No proximal or mid colonic mass identified. Th ere is reflux of contrast into the small bowel. Large right renal mass. Recommend renal protocol CT or MRI. This was seen yesterday on ultrasound as well. Partially seen masslike pulmonary consolidation in the lingula, possibly infectious or inflammatory, round atelectasis, or additional mass. Consider chest CT follow-up. Other findings as above. Reviewed by: Tony Damon MD on 03/10/2023 4:39 PM PDT Approved by: Tony Damon MD on 03/10/2023 4:39 PM PDT Station ID: [id number]
== END 2023-03-10 11:58 | disposition home or self-care (01) ==
LOC: SDS 11:57
PROVIDERS: ATTEND Surgery
PROC: 0DJD8ZZ Inspection of Lower Intestinal Tract, Via Natural or Artificial Opening Endoscopic (ICD-10-PCS; principal; 2023-03-10 13:00)
DX: Z12.11 Encounter for screening for malignant neoplasm of colon (principal); R19.5 Other fecal abnormalities; I10 Essential (primary) hypertension; F17.210 Nicotine dependence, cigarettes, uncomplicated; Z86.010 Personal history of colon polyps
CPT/HCPCS: 74176; G0104; J7120; Q9963

== ENCOUNTER 2023-03-14 11:41 | Outpatient (CLI) | payer MEDICARE ==
[2023-03-14] MEDS ORDERED: iohexoL-300 100 ML VIAL IVP ONE ×2 (11:42→13:10)
[2023-03-14 12:09] LABS: CREATININE 1.1 mg/dL (0.4-1.0)
--- NOTE | 2023-03-14 15:15 | CT Report ---
PROCEDURE: ABDOMEN W/WO INDICATIONS: RENAL MASS CONTRAST: 140ml omni 300 TECHNIQUE: After the administration of intravenous contrast, 5 mm thick sections acquired from the diaphragm to the symphysis. 5 mm coronal and sagittal reformats were acquired. For radiation dose reduction, the following was used: automated exposure control, adjustment of mA and/or kV according to patient siz e. COMPARISON: CT of abdomen and pelvis dated 03/10/2023 FINDINGS: Image quality: Excellent. Genitourinary: Right kidney is asymmetrically enlarged compared to the left side. Large lobulated solid mass with lo bulated contour occupying nearly entire right kidney is again seen measures up to 9.4 x 7.3 x 8.4 cm in its largest transverse, AP and craniocaudal dimensions and show heterogeneous contrast enhancement . Series 6 image 29 and series 17 image 26. Significant mass effect on adjacent right renal hilum,. I nvasion into the right renal vasculature cannot be entirely excluded. No gross tumor mass invasion of the IVC is noted. No hydronephrosis. No left-sided renal mass or hydronephrosis. No hydroureter. OTHER: Lung bases and heart: Unremarkable. Liver: Unremarkable. Gallbladder and biliary tree: Within normal limits. Spleen: Unremarkable. Pancreas: Unremarkable. Adrenals: Unremarkable. Bowel and peritoneum: No bowel distension. No pathologic free fluid. Lymph nodes: No central or retroperitoneal adenopathy. Vessels: Unremarkable. Bones: No aggressive osseous abnormality. Other: None. IMPRESSION: 1. Large lobulated solid enhancing mass occupying nearly entire right kidney measures 9.4 x 7.3 x 8.4 cm in size with significant mass effect effect on right renal hilum, early right renal vascular inva radha cannot be entirely excluded. Finding is highly suggestive of renal malignant process such as miriam al cell carcinoma. No definite tumor mass extension to the IVC is noted. No left renal mass or hydron ephrosis. 2. No abnormally enlarged peritoneal or retroperitoneal lymph nodes are seen. 3. No peritoneal free fluid of free air. No abnormal bowel wall thickening. Reviewed by: Tra Shipley MD on 03/14/2023 3:14 PM PDT Approved by: Tra Shipley MD on 03/14/2023 3:14 PM PDT Station ID: [id number]
--- NOTE | 2023-03-14 15:20 | CT Report ---
PROCEDURE: CHEST W INDICATIONS: RENAL MASS CONTRAST: 140ml omni 300 TECHNIQUE: After the administration of intravenous contrast, 1 mm axial images were acquired from the pulmonary apices through the posterior costophrenic angles. Axial 5 mm soft tissue kernel reconstructions were performed as well as 8 mm axial MIP and coronal and sagittal 5 mm reformations. For radiation dose reduction, the following was used: automated exposure control, adjustment of mA and/or kV according to patient size. COMPARISON: None. FINDINGS: Image quality: Excellent. Lungs and pleura: No pleural effusions. No pneumothorax. Mild dependent atelectasis in posterior asp ect of bilateral lung bases are seen. No suspicious pulmonary nodules which require follow up. Mediastinum: Heart size is normal. Trace amount of pericardial effusions. No mediastinal adenopathy b y size criteria. No large vessel abnormality. Subcentimeter lymph nodes are seen in mediastinum measu res up to 6 mm in size. Chest wall and lower neck: Thyroid gland is normal in size. A 1 x 0.9 cm hypodense nodule is seen in midpole of right thyroid lobe. No axillary or supraclavicular adenopathy by size. Bones: No aggressive osseous abnormality. Chronic appearing compression deformity involving L1 verteb ral body is again seen unchanged from previous CT scan. Upper Abdomen: Unremarkable. IMPRESSION: 1. No suspicious pulmonary nodule or mass is seen. Bibasilar dependent atelectasis. 2. No mediastinal or hilar lymphadenopathy by size criteria. Trace pericardial effusion. 3. Incidentally noted of 1 cm right thyroid lobe nodule. This is an incidental finding and requires n o specific follow-up. Reviewed by: Tra Shipley MD on 03/14/2023 3:19 PM PDT Approved by: Tra Shipley MD on 03/14/2023 3:19 PM PDT Station ID: [id number]
== END 2023-03-14 11:42 | disposition home or self-care (01) ==
LOC: LAB 11:41
PROVIDERS: ATTEND Nurse Practitioner
DX: N28.89 Other specified disorders of kidney and ureter (principal); J98.11 Atelectasis; I31.39 Other pericardial effusion (noninflammatory)
CPT/HCPCS: 36415; 71260; 74170; 82565; Q9967

== ENCOUNTER 2023-06-26 07:21 | Outpatient (CLI) | payer MEDICARE ==
[2023-06-26 12:31] LABS: BASOPHILS % (AUTO) 0.5 %; EOSINOPHILS # (AUTO) 0.2 10^3/uL (0.0-0.7); EOSINOPHILS % (AUTO) 3.1 %; HCT - HEMATOCRIT 35.8 % (37.0-47.0); HGB - HEMOGLOBIN 11.5 g/dL (12.0-16.0); LYMPHOCYTES # (AUTO) 2.9 10^3/uL (1.5-3.5); LYMPHOCYTES % (AUTO) 37.9 %; MEAN CORPUSCULAR HGB CONC 32.1 g/dL (32.0-36.0); MEAN CORPUSCULAR VOLUME 105.9 fL (81.0-99.0); MEAN PLATELET VOLUME 9.9 fL (7.9-10.8); MONOCYTES # (AUTO) 0.7 10^3/uL (0.0-1.0); MONOCYTES % (AUTO) 9.4 %; NEUTROPHILS # (AUTO) 3.8 10^3/uL (1.5-6.6); PLT - PLATELET COUNT 333 10^3/uL (130-450); RED BLOOD COUNT 3.38 10^6/uL (4.20-5.40); RED CELL DISTRIBUTION WIDTH 13.1 % (12.0-15.0); WHITE BLOOD COUNT 7.8 x10^3/uL (4.8-10.8)
[2023-06-26 12:45] LABS: ALBUMIN 4.4 g/dL (3.2-5.5); ALBUMIN/GLOBULIN RATIO 1.6 (1.0-2.2); BILIRUBIN,TOTAL 0.8 mg/dL (0.2-1.0); CALCIUM 9.6 mg/dL (8.5-10.3); CREATININE 1.4 mg/dL (0.6-1.3); POTASSIUM 4.1 mmol/L (3.5-4.5); TOTAL PROTEIN 7.2 g/dL (6.4-8.9)
[2023-06-26 12:55] LABS: BILIRUBIN,URINE NEGATIVE (NEGATIVE); GLUCOSE, URINE (UA) NEGATIVE (NEGATIVE); KETONES,URINE (UA) NEGATIVE (NEGATIVE); LEUKOCYTE ESTERASE, URINE NEGATIVE (NEGATIVE); NITRITE,URINE NEGATIVE (NEGATIVE); OCCULT BLOOD,URINE NEGATIVE (NEGATIVE); PH,URINE 5.5 PH (5.0-7.5); PROTEIN,URINE NEGATIVE (NEGATIVE); UROBILINOGEN,URINE 0.2 (NORMAL) E.U./dL (NORMAL)
[2023-06-26 13:45] LABS: AMORPHOUS SEDIMENT,UR Marked /LPF; BACTERIA,URINE None Seen /HPF (None Seen); CLARITY,URINE CLOUDY (CLEAR); RBC,URINE 0-5 /HPF (0-5); SQUAMOUS EPITHELIAL CELL,UR FEW Squamous (<= Few); WBC,URINE 0-3 /HPF (0-5)
== END 2023-06-26 07:22 | disposition home or self-care (01) ==
LOC: LAB.N 07:21
PROVIDERS: ATTEND Nurse Practitioner
DX: N18.31 Chronic kidney disease, stage 3a (principal); N28.9 Disorder of kidney and ureter, unspecified
CPT/HCPCS: 36415; 80053; 81001; 85025; 87086

== ENCOUNTER 2023-12-22 20:06 | Outpatient (CLI) | payer MEDICARE | END 2023-12-22 20:07 | disposition critical access hospital (66) | LOC: EMS 20:06 | DX: S99.912A Unspecified injury of left ankle, initial encounter (principal); W18.30XA Fall on same level, unspecified, initial encounter; Y92.008 Other place in unspecified non-institutional (private) residence as the place of occurrence of the external cause; F10.90 Alcohol use, unspecified, uncomplicated | CPT/HCPCS: A0425; A0427 ==

== ENCOUNTER 2023-12-22 20:22 | Inpatient (IN) | payer MEDICARE ==
--- NOTE | 2023-12-22 20:22 | ED Physician Documentation ---
PD HPI LOWER EXT INJURY - Stated complaint Stated Complaint: GLF - History obtained from History obtained from: Patient, EMS - Additional information Additional information: BIBA. HPI from EMS, patient. Patient is hypomanic and this presents a challenge to ascertaining HPI/ROS. Patient sustained a ground-level fall this evening. She denies LOC. Unclear what caused her to fall. Her chief (and only) complaint is left ankle pain. The pain is worse with palpation, movement, and any attempt to bear weight on the left lower extremity. She is given 2 mg morphine sulfate IV by EMS en route, this was placed through a 20-gauge that had been placed by EMS in the left hand. She denies any other injury. Denies head injury, denies LOC. Review of Systems Musculoskeletal: reports: Joint pain, Joint swelling. denies: Neck pain, Back pain Neurologic: denies: Generalized weakness, Focal weakness, Numbness PD PAST MEDICAL HISTORY - Past Medical History Past Medical History: Yes Cardiovascular: Hypertension - Present Medications Home Medications: Ambulatory Orders Medication Instructions Recorded Confirmed amLODIPine [Norvasc] 5 mg PO DAILY 11/19/20 12/23/23 Losartan Potassium [Cozaar] 100 mg PO DAILY 03/02/23 12/23/23 hydroCHLOROthiazide [Hydrodiuril] 12.5 mg PO DAILY 03/02/23 12/23/23 Zoledronic Acid 5Mg/100Ml Bag 5 mg IV ONCE 12/23/23 12/23/23 [Reclast 5 mg/100 ml Bag] - Allergies Allergies/Adverse Reactions: Allergies Allergy/AdvReac Type Severity Reaction Status Date / Time No Known Drug Allergies Allergy Verified 10/12/23 14:28 PD ED PE NORMAL - Vitals Vital signs reviewed: Yes - General General: Alert and oriented X 3, No acute distress, Well developed/nourished, Other - HEENT HEENT: Atraumatic, PERRL, EOMI, Moist mucous membranes - Neuro Neuro: No motor deficit, No sensory deficit (LTS intact bilateral feet) PD ED PE EXPANDED - Extremities Extremities: Tenderness, Limited ROM, Swelling, Left ankle, Pedal Pulses Present Results - Vitals Vitals: Vital Signs - 24 hr 12/22/23 12/22/23 12/22/23 20:25 20:30 22:30 Temperature 35.8 C L 35.8 C L Heart Rate 87 87 81 Respiratory 19 19 19 Rate Blood Pressure 111/75 111/75 91/67 O2 Saturation 97 97 95 Oxygen O2 Source Room air - Labs Labs: Laboratory Tests 12/22/23 12/22/23 21:51 21:51 WBC 8.5 RBC 2.99 L Hgb 10.5 L Hct 31.8 L MCV 106.4 H MCH 35.1 H MCHC 33.0 RDW 13.9 Plt Count 378 MPV 8.8 Neut # (Auto) 6.0 Lymph # (Auto) 1.8 [place] # (Auto) 0.7 Eos # (Auto) 0.1 Baso # (Auto) 0.1 Absolute Nucleated RBC 0.00 Nucleated RBC % 0.0 Sodium 133 L Potassium 4.0 Chloride 98 L Carbon Dioxide 21 Anion Gap 14.0 H BUN 25 H Creatinine 2.1 H Estimated GFR (MDRD) 24 L Glucose 102 Calcium 9.0 Ethyl Alcohol 241.3 - Rads (name of study) left ankle xrays Relevant Findings:: Prelim report reviewed, See rad report Procedures - Splint (location) - Minor Lower extremity left Splint applied by: Physician Type of splint: Short leg, Posterior, Stirrup Other: Patient tolerated well, No complications, Neurovascular intact, Good alignment PD Medical Decision Making - ED course Complexity details: reviewed results, re-evaluated patient, considered sindy north d/w patient ED course: Left ankle xrays demonstrate comminuted distal tibia and fibula fractures. No evidence of open fracture on exam and the left foot is NVI with LTS intact and brisk capillary refill, strong pedal pulse. Given the complexity of injury, I discussed this case with Dr. Olayinka Ren (manager non profit orthopedic surgeon manager non profit for [facility]). He then came to ED, evaluated patient, and admitted her with plan to take her to OR for surgical repair Departure - Departure Disposition: [facility] DC/Xfer Clinical Impression: Ankle fracture, left Qualifiers: Encounter type: initial encounter Fracture type: closed Qualified Code(s): S82.892A - Other fracture of left lower leg, initial encounter for closed fracture Condition: Stable Discharge Date/Time: 12/23/23 04:04
--- NOTE | 2023-12-22 21:05 | XRAY Report ---
PROCEDURE: Ankle 3+V LT INDICATIONS: fall, left ankle pain TECHNIQUE: 3 views of the ankle were acquired. COMPARISON: None. FINDINGS: Bones: There is a comminuted intra-articular fracture of the distal fibula with mild displacement an d medial angulation. In addition, there is comminuted fractures of the distal tibia with mild displac ement and posterior angulation. There is lateral tilt of the talus. No suspicious bony lesions. Soft tissues: Small tibiotalar joint effusion. Achilles tendon appears normal. Soft tissue swellin g. IMPRESSION: 1. Comminuted distal fibular and tibial fractures. Reviewed by: Clementine Álvarez MD on 12/22/2023 9:04 PM [facility] Approved by: Clementine Álvarez MD on 12/22/2023 9:04 PM [facility] Station ID: [id number]
[2023-12-22] MEDS ORDERED: HYDROmorphone 1 MG/ML CARPUJECT IVP STA (21:19)
[2023-12-22] MEDS ORDERED: SODIUM CHLORIDE 0.9% 1,000 ML IV STA (21:43)
[2023-12-22 21:56] LABS: BASOPHILS # (AUTO) 0.1 10^3/uL (0.0-0.1); BASOPHILS % (AUTO) 0.6 %; EOSINOPHILS # (AUTO) 0.1 10^3/uL (0.0-0.7); EOSINOPHILS % (AUTO) 0.8 %; HCT - HEMATOCRIT 31.8 % (37.0-47.0); HGB - HEMOGLOBIN 10.5 g/dL (12.0-16.0); LYMPHOCYTES # (AUTO) 1.8 10^3/uL (1.5-3.5); LYMPHOCYTES % (AUTO) 20.7 %; MEAN CORPUSCULAR HEMOGLOBIN 35.1 pg (27.0-31.0); MEAN CORPUSCULAR VOLUME 106.4 fL (81.0-99.0); MEAN PLATELET VOLUME 8.8 fL (7.9-10.8); MONOCYTES # (AUTO) 0.7 10^3/uL (0.0-1.0); MONOCYTES % (AUTO) 7.6 %; NEUTROPHILS % (AUTO) 70.1 %; PLT - PLATELET COUNT 378 10^3/uL (130-450); RED BLOOD COUNT 2.99 10^6/uL (4.20-5.40); RED CELL DISTRIBUTION WIDTH 13.9 % (12.0-15.0); WHITE BLOOD COUNT 8.5 x10^3/uL (4.8-10.8)
[2023-12-22 22:26] LABS: ETOH - ETHANOL 241.3 mg/dL
[2023-12-22 22:27] LABS: CREATININE 2.1 mg/dL (0.6-1.3)
--- NOTE | 2023-12-22 23:12 | HISTORY & PHYSICAL EXAMINATION ---
HPI - History Obtained From History obtained from: Patient (Enriqueta Evans is a 63-year-old female with a history of right nephrectomy for renal malignancy and with postmenopausal osteoporosis who apparently stumbled at her home on the evening of her admission sustaining a comminuted distal left tibia and fibula fracture. It was best characterized as) PMH/PSH - Past Medical History Cardiovascular: positive: Hypertension Respiratory: positive: None Endocrine/Autoimmune: positive: None GI: positive: Hemorrhoids : positive: None HEENT: positive: Chronic vision loss, Other Psych: positive: None Musculoskeletal: positive: None Derm: positive: None MRSA Hx?: No - Past Surgical History General: positive: Colonoscopy, Other Ortho: positive: Other /[employer]: positive: Hysterectomy Social & Family Hx - Social History Does the pt smoke?: Yes Smoking Status: Current every day smoker Does the pt drink ETOH?: No Does the pt have substance abuse?: Yes - POLST Patient has POLST: No Meds/Allgy - Home Medications Home Medications: Ambulatory Orders Medication Instructions Recorded Confirmed amLODIPine [Norvasc] 5 mg PO DAILY 11/19/20 09/01/23 Losartan Potassium [Cozaar] 100 mg PO DAILY 03/02/23 09/01/23 hydroCHLOROthiazide [Hydrodiuril] 12.5 mg PO DAILY 03/02/23 09/01/23 - Allergies Allergies/Adverse Reactions: Allergies Allergy/AdvReac Type Severity Reaction Status Date / Time No Known Drug Allergies Allergy Verified 10/12/23 14:28 Exam - Vital Signs Vital Signs: Vital Signs x48h Temp Pulse Resp BP Pulse Ox 12/22/23 20:25 35.8 C L 87 19 111/75 97 - Physical Exam Comments/Other: Examination: Normocephalic, PERRLA, EOM-intact, nose and throat clear, neck-supple and nontender Chest: Clear without rales or wheezes. Cardiovascular: Regular rate and rhythm, S1 and S2 heard without murmurs or rubs Abdomen: Healed longitudinal anterior abdominal incision. Active bowel sounds. No abdominal tenderness on palpation. Extremities: Patient has 1-2+ swelling about the ankle and distal tibia. Mild external rotation alignment of her lower leg. She moves her toes voluntarily. Sensation. To be intact in her lower extremity. No open wounds about the distal calf or ankle. Mental status: Patient appeared to be alert and oriented. Answers questions appropriately. Initially was a bit agitated but did calm down. Results - Lab Results Fish Bones: 12/22/23 21:51 12/22/23 21:51 Other Lab Results: Lab Results x24hrs 12/22/23 12/22/23 Range/Units 21:51 21:51 WBC 8.5 (4.8-10.8) x10^3/uL RBC 2.99 L (4.20-5.40) 10^6/uL Hgb 10.5 L (12.0-16.0) g/dL Hct 31.8 L (37.0-47.0) % MCV 106.4 H (81.0-99.0) fL MCH 35.1 H (27.0-31.0) pg MCHC 33.0 (32.0-36.0) g/dL RDW 13.9 (12.0-15.0) % Plt Count 378 (130-450) 10^3/uL MPV 8.8 (7.9-10.8) fL Neut # (Auto) 6.0 (1.5-6.6) 10^3/uL Lymph # (Auto) 1.8 (1.5-3.5) 10^3/uL [place] # (Auto) 0.7 (0.0-1.0) 10^3/uL Eos # (Auto) 0.1 (0.0-0.7) 10^3/uL Baso # (Auto) 0.1 (0.0-0.1) 10^3/uL Absolute Nucleated RBC 0.00 x10^3/uL Nucleated RBC % 0.0 /100WBC Sodium 133 L (135-145) mmol/L Potassium 4.0 (3.5-4.5) mmol/L Chloride 98 L (101-111) mmol/L Carbon Dioxide 21 (21-32) mmol/L Anion Gap 14.0 H (6-13) BUN 25 H (6-20) mg/dL Creatinine 2.1 H (0.6-1.3) mg/dL Estimated GFR (MDRD) 24 L (>89) Glucose 102 (74-104) mg/dL Calcium 9.0 (8.5-10.3) mg/dL Ethyl Alcohol 241.3 mg/dL
[2023-12-22] MEDS ORDERED: SODIUM CHLORIDE FLUSH 0.9% 10 ML SYRINGE IVP PRN (23:19)
[2023-12-23] MEDS ORDERED: HYDROmorphone 1 MG/ML CARPUJECT IVP STA (00:49)
[2023-12-23] MEDS: MORPHINE 2 MG/ML CARPUJECT IVP PRN ×2 (02:53→05:51)
[2023-12-23] MEDS: D5.45NS W/20 MEQ KCL 1,000 ML IV SCH ×2 (02:54→16:20)
[2023-12-23] MEDS: SODIUM CHLORIDE FLUSH 0.9% 10 ML SYRINGE IVP SCH ×3 (05:51→16:20)
[2023-12-23] MEDS: amLODIPine 5 MG TABLET PO SCH (08:48)
[2023-12-23] MEDS: ONDANSETRON 4 MG/2 ML VIAL IVP PRN ×2 (08:48→23:57)
[2023-12-23] MEDS: LOSARTAN 50 MG TABLET PO SCH (08:48)
[2023-12-23] MEDS: HYDROmorphone 1 MG/ML CARPUJECT IVP PRN ×3 (08:49→21:24)
[2023-12-23] MEDS: hydroCHLOROthiazide 12.5 MG CAPSULE PO SCH (09:18)
[2023-12-23] MEDS ORDERED: LIDOCAINE-PF 2% 10 ML AMP SUBQ ONE ×2 (10:26→11:39)
[2023-12-23] MEDS ORDERED: ROPIVACAINE 0.5% PF 20 ML VIAL ONE ×2 (10:26→10:29)
--- NOTE | 2023-12-23 10:50 | PHARMACY PROGRESS NOTE ---
- Best Possible Medication History Admit Date and Time: 12/22/23 0465 Processed by: Pharmacy Medication History completed: Yes Patient Interview: Completed Secondary Source(s): Pharmacy records, Insurance records As the person ultimately responsible for medication therapy, providers are able to order a medication from an existing home medication list in [facility] via the "Reconcile Routine" prior to Confirmation of that medication by network support manager. Such practice is discouraged except when the physician, in their clinical judgment, deems that a medical need exists for a medication without regard to previous use.
--- NOTE | 2023-12-23 11:06 | ANESTHESIA ---
Pre-Anesthesia VS, & Labs - Diagnosis L tibi/fib fx - Procedure ORIF distal fibula Left Vital Signs: Temp Pulse Resp BP Pulse Ox O2 Flow Rate 36.8 C 95 20 130/84 H 95 1 12/23/23 07:35 12/23/23 07:35 12/23/23 07:35 12/23/23 07:35 12/23/23 07:35 12/23/23 07:35 Height: 5 ft 4 in Weight (kg): 58 kg Body Mass Index: 21.9 BMI Classification: Normal - NPO >8 hours - Is Patient ?: No - Lab Results Current Lab Results: Laboratory Tests 12/22/23 21:51: Sodium 133 L, Potassium 4.0, Chloride 98 L, Carbon Dioxide 21, Anion Gap 14.0 H, BUN 25 H, Creatinine 2.1 H, Estimated GFR (MDRD) 24 L, Glucose 102, Calcium 9.0, Ethyl Alcohol 241.3 12/22/23 21:51: WBC 8.5, RBC 2.99 L, Hgb 10.5 L, Hct 31.8 L, MCV 106.4 H, MCH 35.1 H, MCHC 33.0, RDW 13.9, Plt Count 378, MPV 8.8, Neut # (Auto) 6.0, Lymph # (Auto) 1.8, [place] # (Auto) 0.7, Eos # (Auto) 0.1, Baso # (Auto) 0.1, Absolute Nucleated RBC 0.00, Nucleated RBC % 0.0 Lab results reviewed: Yes Fish Bones: 12/22/23 21:51 12/22/23 21:51 Home Medications and Allergies Home Medications: Ambulatory Orders Zoledronic Acid 5Mg/100Ml Bag [Reclast 5 mg/100 ml Bag] 5 mg IV ONCE 12/23/23 Active Medications Amlodipine Besylate (Amlodipine 5 Mg Tablet) 5 mg PO DAILY [facility] Last Admin: 12/23/23 08:48 Dose: 5 mg Hydrochlorothiazide (Hydrochlorothiazide 12.5 Mg Capsule) 12.5 mg PO DAILY [facility] Last Admin: 12/23/23 09:18 Dose: 12.5 mg Hydromorphone HCl (Hydromorphone 1 Mg/Ml Carpuject) 1 mg IVP Q2HR PRN PRN Reason: PAIN >8 Last Admin: 12/23/23 10:42 Dose: 1 mg Potassium Chloride/Dextrose/Sod Cl (D5.45ns W/20 Meq Kcl) 1,000 mls @ 100 mls/hr IV .Q10H [facility] Last Admin: 12/23/23 02:54 Dose: 100 mls/hr Losartan Potassium (Losartan 50 Mg Tablet) 100 mg PO DAILY [facility] Last Admin: 12/23/23 08:48 Dose: 100 mg Morphine Sulfate (Morphine 2 Mg/Ml Carpuject) 2 mg IVP Q2HR PRN PRN Reason: PAIN >8 Last Admin: 12/23/23 05:51 Dose: 2 mg Ondansetron HCl (Ondansetron 4 Mg/2 Ml Vial) 4 mg IVP Q6HR PRN PRN Reason: Nausea / Vomiting Last Admin: 12/23/23 08:48 Dose: 4 mg Sodium Chloride (Sodium Chloride Flush 0.9% 10 Ml Syringe) 10 ml IVP 0100,0900,1700 [facility] Last Admin: 12/23/23 08:49 Dose: 10 ml Sodium Chloride (Sodium Chloride Flush 0.9% 10 Ml Syringe) 10 ml IVP PRN PRN PRN Reason: NEEDED PER PROVIDER ORDERS amLODIPine [Norvasc] 5 mg PO DAILY 11/19/20 Losartan Potassium [Cozaar] 100 mg PO DAILY 03/02/23 hydroCHLOROthiazide [Hydrodiuril] 12.5 mg PO DAILY 03/02/23 Zoledronic Acid 5Mg/100Ml Bag [Reclast 5 mg/100 ml Bag] 5 mg IV ONCE 12/23/23 Allergies/Adverse Reactions: Allergies Allergy/AdvReac Type Severity Reaction Status Date / Time No Known Drug Allergies Allergy Verified 10/12/23 14:28 Anes History & Medical History - Anesthetic History Anesthesia Complications: reports: No previous complications Family history of Anesthesia Complications: Denies Family history of Malignant Hyperthermia: Denies - Medical History Cardiovascular: reports: Hypertension Pulmonary: reports: None Gastrointestinal: reports: Chronic diarrhea, Hemorrhoids Urinary: reports: None Neuro: reports: None Musculoskeletal: reports: None Endocrine/Autoimmune: reports: Other Blood Disorders: reports: None Skin: reports: None Smoking Status: Former smoker Psychosocial: reports: Alcohol (0.2 on admit) History of Cancer?: No Other Past Medical History: emtional distress, 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 - Surgical History General: reports: Colonoscopy, Other Cardiothoracic: reports: Other Gynecologic: reports: Hysterectomy Orthopedic: reports: Other Exam General: Alert, Oriented x3, Cooperative Dental: WNL Mouth Openin Fingerbreadth Neck Mobility: Normal Mallampati classification: II Thyromental Distance: 4-6 cm Respiratory: Lungs clear, Normal breath sounds, No respiratory distress Cardiovascular: Regular rate Neurological: Normal speech Mental/Cognitive Status: Alert/Oriented X3, Normal for patient Other Exam Comments:: patient is legally blind Plan Anesthesia Type: General, Femoral Block (placed at 1100 on msu), Sciatic Nerve Block (placed at 1100 on msu) Regional Block: Per Surgeon's request for Post Op pain control Consent for Procedure(s) Verified and Reviewed: Yes Code Status: Attempt Resuscitation ASA classification: 3-Severe systemic disease Is this case an emergency?: No
--- NOTE | 2023-12-23 11:09 | ANESTHESIA PROCEDURE NOTE ---
Diagnosis: L tib/fib fx Procedure: L post sciatic block, L fem nerve block Consent for Procedure(s) Verified and Reviewed: Yes Height and Weight: Height 5 ft 4 in Weight (kg) 58 kg Body Mass Index 21.9 Vital Signs: Temp Pulse Resp BP Pulse Ox O2 Flow Rate 36.8 C 95 20 130/84 H 95 1 12/23/23 07:35 12/23/23 07:35 12/23/23 07:35 12/23/23 07:35 12/23/23 07:35 12/23/23 07:35 Allergies No Known Drug Allergies Allergy (Verified 10/12/23 14:28) Requesting Provider: Olayinka Benites MD Location: [place] [address] ASA classification: 3-Severe systemic disease Is this case an emergency?: No Anes. Monitoring and Equipment: Non-invasive BP, Pulse oximetery Anes. Procedure Start Time: 11:01 Anes. Procedure Stop Time: 11:09 Procedure Notes: Consent. Supine for fem nerve block under us. 30cc total (15cc 0.5% ropi, 5cc 2% Lido) R LD for post sciatic block (15cc 0.5% ropi, 5cc 2% Lido) Patient tolerated the procedure and states great pain relief after completion of blocks.
[2023-12-23] MEDS ORDERED: fentaNYL 100 MCG/2 ML VIAL ONE (11:39)
[2023-12-23] MEDS ORDERED: MIDAZOLAM 2 MG/2 ML VIAL ONE (11:39)
[2023-12-23] MEDS ORDERED: PROPOFOL 200 MG/20 ML VIAL IVP ONE (11:39)
[2023-12-23] MEDS ORDERED: SEVOFLURANE 250 ML LIQUID INH ONE (11:43)
--- NOTE | 2023-12-23 11:47 | PROVIDER PROGRESS NOTE ---
Subjective - General Admit Date: 12/22/23 Procedure Date: 12/23/23 Post Op Days: 0 - Other Other Information/Narrative: No interval change in exam. Continue with OR as planned. Objective - Patient Data Vital Signs: Vital Signs x48h Temp Pulse Pulse Resp BP Pulse Ox O2 Flow Rate 12/23/23 07:35 36.8 C 95 20 130/84 H 95 1 12/23/23 06:07 36.7 C 92 18 122/84 H 96 2 Weight: Weight 12/21/23 12/22/23 12/23/23 23:59 23:59 23:59 Weight (kg) 58.9 kg 58 kg Intake & Output: Intake and Output Totals x24h 12/21/23 12/22/23 12/23/23 23:59 23:59 23:59 Output Total 800 900 Balance -800 -900 - Lab Results Lab Results: 12/22/23 21:51 12/22/23 21:51 Other Lab Results: Lab Results x24hrs 12/22/23 12/22/23 Range/Units 21:51 21:51 WBC 8.5 (4.8-10.8) x10^3/uL RBC 2.99 L (4.20-5.40) 10^6/uL Hgb 10.5 L (12.0-16.0) g/dL Hct 31.8 L (37.0-47.0) % MCV 106.4 H (81.0-99.0) fL MCH 35.1 H (27.0-31.0) pg MCHC 33.0 (32.0-36.0) g/dL RDW 13.9 (12.0-15.0) % Plt Count 378 (130-450) 10^3/uL MPV 8.8 (7.9-10.8) fL Neut # (Auto) 6.0 (1.5-6.6) 10^3/uL Lymph # (Auto) 1.8 (1.5-3.5) 10^3/uL [place] # (Auto) 0.7 (0.0-1.0) 10^3/uL Eos # (Auto) 0.1 (0.0-0.7) 10^3/uL Baso # (Auto) 0.1 (0.0-0.1) 10^3/uL Absolute Nucleated RBC 0.00 x10^3/uL Nucleated RBC % 0.0 /100WBC Sodium 133 L (135-145) mmol/L Potassium 4.0 (3.5-4.5) mmol/L Chloride 98 L (101-111) mmol/L Carbon Dioxide 21 (21-32) mmol/L Anion Gap 14.0 H (6-13) BUN 25 H (6-20) mg/dL Creatinine 2.1 H (0.6-1.3) mg/dL Estimated GFR (MDRD) 24 L (>89) Glucose 102 (74-104) mg/dL Calcium 9.0 (8.5-10.3) mg/dL Ethyl Alcohol 241.3 mg/dL - Current Medications Current Medications: Current Medications Generic Name Dose Route Start Last Admin Trade Name Freq PRN Reason Stop Dose Admin Amlodipine Besylate 5 mg 12/23/23 09:00 12/23/23 08:48 Amlodipine 5 Mg Tablet PO 5 mg DAILY GUILLERMINA Administration Hydrochlorothiazide 12.5 mg 12/23/23 09:00 12/23/23 09:18 Hydrochlorothiazide 12.5 Mg Capsule PO 12.5 mg DAILY GUILLERMINA Administration Hydromorphone HCl 1 mg 12/23/23 07:54 12/23/23 10:42 Hydromorphone 1 Mg/Ml Carpuject IVP 1 mg Q2HR PRN Administration PAIN >8 Potassium Chloride/Dextrose/Sod Cl 1,000 mls @ 100 mls/hr 12/22/23 23:45 12/23/23 02:54 D5.45ns W/20 Meq Kcl IV 100 mls/hr .Q10H GUILLERMINA Administration Losartan Potassium 100 mg 12/23/23 09:00 12/23/23 08:48 Losartan 50 Mg Tablet PO 100 mg DAILY GUILLERMINA Administration Morphine Sulfate 2 mg 12/22/23 23:46 12/23/23 05:51 Morphine 2 Mg/Ml Carpuject IVP 2 mg Q2HR PRN Administration PAIN >8 Ondansetron HCl 4 mg 12/23/23 07:55 12/23/23 08:48 Ondansetron 4 Mg/2 Ml Vial IVP 4 mg Q6HR PRN Administration Nausea / Vomiting Sodium Chloride 10 ml 12/23/23 01:00 01/24/24 08:49 Sodium Chloride Flush 0.9% 10 Ml Syringe IVP 10 ml 0100,0900,1700 GUILLERMINA Administration
[2023-12-23] MEDS ORDERED: BUPIVACAINE 0.25% PF 30 ML VIAL ONE (11:49)
[2023-12-23] MEDS ORDERED: DEXAMETHASONE 4 MG/ML VIAL ONE (12:23)
[2023-12-23] MEDS ORDERED: ONDANSETRON 4 MG/2 ML VIAL ONE (12:23)
[2023-12-23] MEDS ORDERED: ceFAZolin 1 GM VIAL ONE (12:24)
[2023-12-23] MEDS ORDERED: PHENYLEPHRINE HCL 0.5 MG/5 ML AMPULE ONE ×2 (12:29→12:44)
[2023-12-23] MEDS ORDERED: MORPHINE 2 MG/ML CARPUJECT IVP PRN (13:37)
[2023-12-23] MEDS ORDERED: METOCLOPRAMIDE 10 MG/2 ML VIAL IVP PRN (13:37)
[2023-12-23] MEDS ORDERED: ATROPINE ABBOJECT 1 MG/10 ML SYRINGE IVP PRN (13:37)
[2023-12-23] MEDS ORDERED: HYDROmorphone 0.5 MG/0.5 ML SYRINGE IVP PRN (13:37)
[2023-12-23] MEDS ORDERED: fentaNYL 100 MCG/2 ML VIAL IVP PRN (13:37)
[2023-12-23] MEDS ORDERED: ePHEDrine 50 MG/ML VIAL IVP PRN (13:37)
[2023-12-23] MEDS ORDERED: NALOXONE 0.4 MG/ML VIAL IVP PRN (13:37)
[2023-12-23] MEDS ORDERED: ONDANSETRON 4 MG/2 ML VIAL IVP PRN (13:37)
[2023-12-23] MEDS ORDERED: LACTATED RINGERS 1,000 ML IV SCH (14:00)
--- NOTE | 2023-12-23 14:21 | OPERATIVE REPORT ---
Operative Report - General Admit Date: 12/22/23 Procedure Date: 12/23/23 Planned Procedure: External fixation of left tibia fracture; ORIF left distal fibula fracture Pre-Op Diagnosis: Left pilon fracture Procedure Performed: ORIF left fibula fracture; closed reduction of left distal tibia fracture Post Op Diagnosis: Same - Procedure Note Primary Surgeon: Ky Benites Secondary Surgeon: ANG Marcus Anesthesia Technique: Regional block IV Fluids (mL): 1,000 Estimated Blood Loss (mL): 150 Complications: None - Other Other Information/Narrative: Description of operation: Patient was taken the operating room in the afternoon of 23 December where she was placed under anesthesia. Preoperatively she underwent a regional nerve block which had a very comfortable. We then placed a bolster underneath her left hip and placed the thigh in the [facility] and on the leg. Tourniquet was not inflated during the case. We then prepped and draped the left lower leg in usual fashion for our procedure Through lateral skin incision we approached the distal fibular fracture. There is marked amount of comminution and was difficult obtaining anatomic reduction of the fracture due to this comminution. We brought the fracture out to length with traction on the leg. We then provided provisional fixation of this fibular fracture using a appropriate length locking distal fibular plate. 1 locked screw of the appropriate length was placed into the distal fragment and then the distal end of our plate; in a likewise fashion a nonlocking 3 5 mm cortical screw was used to approximate the proximal end of the plate to the fibular shaft. Fluoroscopic views were then obtained showing the fibular fracture to be essentially out the length and in good alignment. The reduction of the fibular fracture also aided in the reduction of our angulated distal tibial fracture. This point we then proceeded to complete the fixation of our distal fibular fracture. Total of 4 3.5 millimeters locked screws in the distal fragment was then inserted using the usual technique to anchor this distal fragment that toe but on the distal end of our plate. We then inserted a total of 4 3 5 mm cortical screws to anchor the proximal end of our plate. Another set of x-rays were then obtained in AP and lateral projections with the fluoroscopy machine again showing the fracture of the fibula to be reduced with satisfactory placement of hardware. Likewise the distal tibia fracture appears to be in good alignment now as well. We then irrigated the wound out thoroughly with saline. We closed the wound in layers using buried simple stitches of 3-0 Vicryl to approximate the subcutaneous tissues followed by skin marcello to approximate the skin wound. We then dressed the wound with Xeroform gauze 4 x 4's Webril and a short leg posterior splint. Fluoroscopy machine today and then utilized to obtain x-rays of our fracture in our postoperative splint. Still showed no significant interval change in the position of our fracture and satisfactory placement of hardware. Patient then transferred off the table and taken to recovery room in satisfactory condition. Estimated blood loss: 150s mL blood Replacement: The 1000 mL of crystalloid Intraoperative complications: None Plan: While the patient essentially nonweightbearing in a short leg splint and cast for about 6 weeks time until we have obtained fracture healing. She will be discharged to independent with therapy. Follow-up in orthopedic clinic in about 10 days time for wound check and new set of x-rays of her distal tibia and fibula.
[2023-12-23] MEDS ORDERED: LACTATED RINGERS 1,000 ML IV ONE (14:22)
[2023-12-23] MEDS ORDERED: DOCUSATE SODIUM 100 MG CAPSULE PO PRN (14:28)
--- NOTE | 2023-12-23 14:32 | ANESTHESIA POST OP EVALUATION ---
Anesthesia Post Eval - Post Anesthesia Eval Vitals: Last Vital Signs Temp 36.8 C 12/23/23 07:35 Pulse 107 H 12/23/23 14:30 Resp 20 12/23/23 14:30 BP 107/71 12/23/23 14:30 Pulse Ox 94 12/23/23 14:30 O2 Flow Rate 1 12/23/23 07:35 CV Function Including HR & BP: Stable Pain Control: Satisfactory Nausea & Vomiting: Negative Mental Status: Baseline Respiratory Status: Airway Patent Hydration Status: Satisfactory Anesthesia Complications: None
--- NOTE | 2023-12-23 14:57 | XRAY Report ---
PROCEDURE: OR C-Arm Procedure INDICATIONS: ORIF DISTAL FIBULAR FRACTURE FLUORO TIME: 000.3 TECHNIQUE: 4 intraoperative fluoroscopic views of the ankle were acquired. COMPARISON: X-ray ankle 12/22/2023 FINDINGS: Distal fibular ORIF is present. Hardware is intact. There is relatively good anatomic alignment. Frac ture lucencies are identified within the distal tibia. IMPRESSION: Intraoperative distal fibular ORIF. Reviewed by: Jayda Parra MD on 12/23/2023 2:56 PM PST Approved by: Jayda Parra MD on 12/23/2023 2:56 PM PST Station ID: [id number]
[2023-12-23] MEDS: ceFAZolin (2G) 2 GM in SODIUM CHLORIDE 0.9% MINIBAG 100 ML IV SCH ×2 (16:20→22:42)
[2023-12-23] MEDS: oxyCODONE 5 MG TABLET PO PRN ×2 (17:54→23:57)
[2023-12-23] MEDS: NS W/20 MEQ KCL 1,000 ML IV SCH (17:54)
[2023-12-23 18:22] LABS: HGB - HEMOGLOBIN 9.8 g/dL (12.0-16.0)
[2023-12-23] MEDS: ASPIRIN EC 81 MG TABLET PO SCH (21:22)
[2023-12-23] MEDS ORDERED: ACETAMINOPHEN 325 MG TABLET PO SCH (22:00)
[2023-12-24] MEDS: NS W/20 MEQ KCL 1,000 ML IV SCH ×2 (00:21→14:29)
[2023-12-24] MEDS: SODIUM CHLORIDE FLUSH 0.9% 10 ML SYRINGE IVP SCH ×3 (00:21→16:13)
[2023-12-24] MEDS: HYDROmorphone 1 MG/ML CARPUJECT IVP PRN ×3 (02:31→08:08)
[2023-12-24] MEDS: D5.45NS W/20 MEQ KCL 1,000 ML IV SCH ×3 (03:38→17:18)
[2023-12-24] MEDS: ACETAMINOPHEN 500 MG TABLET PO SCH ×2 (05:37→14:09)
[2023-12-24] MEDS: oxyCODONE 5 MG TABLET PO PRN (07:01)
[2023-12-24] MEDS: amLODIPine 5 MG TABLET PO SCH (08:05)
[2023-12-24] MEDS: ASPIRIN EC 81 MG TABLET PO SCH (08:05)
[2023-12-24] MEDS: LOSARTAN 50 MG TABLET PO SCH (08:05)
[2023-12-24] MEDS: hydroCHLOROthiazide 12.5 MG CAPSULE PO SCH (08:15)
--- NOTE | 2023-12-24 08:19 | PROVIDER PROGRESS NOTE ---
Subjective - Prog Note Date Prog Note Date: 12/24/23 Prog Note Time: 08:17 - Subjective Pt reports feeling: Improved (Improved. Minimal pain. Up in PT) Objective - Vital Signs/Intake & Output Vital Signs: Vital Signs x48h Temp Pulse Resp BP Pulse Ox O2 Flow Rate 12/24/23 03:41 36.9 C 96 20 103/71 96 3 Intake & Output: Intake & Output 12/21/23 12/22/23 12/23/23 12/24/23 23:59 23:59 23:59 23:59 Intake Total 2440 970 Output Total 800 1600 600 Balance -800 840 370 - Lab Results Fish Bones: 12/23/23 17:46 12/22/23 21:51 Other Labs: Lab Results x24hrs 12/23/23 Range/Units 17:46 Hgb 9.8 L (12.0-16.0) g/dL Hct 30.0 L (37.0-47.0) % - Other Results/Comments Other Results/Comments: Exam: Splint-ok N/V ok Assessment/Plan - Problem List (1) Ankle fracture, left Impression: improved post op PLAN: Discharge home after PT RTC in 2-[address] Benites Qualifiers: Encounter type: initial encounter Fracture type: closed Qualified Code(s): S82.892A - Other fracture of left lower leg, initial encounter for closed fracture
--- NOTE | 2023-12-24 08:22 | Discharge Plan ---
Discharge Plan Problem Reviewed?: Yes Disposition: Home, Self Care Condition: Stable Prescriptions: oxyCODONE [Roxicodone] 5 mg PO Q4-6H #20 tablet Diet: Regular Activity Restrictions: Non weightbearing on spli Shower Restrictions: Yes (Sponge bathe until casting) Driving Restrictions: Yes (No driving until out of cast) Assistance Devices: Walker Weight Bearing: No Weight Health Concerns: Keep splinted leg elevated in bed Walker ambulate - Nonweightbearing on left Sponge bathe until casting in office Meds as prescribed Follow up in office in 2-3 weeks Plan of Treatment: As noted above Care Goals: As noted above Assessment: S/P ORIF Left Ankle Fracture Additional Instructions or Follow Up instructions: - No Smoking: If you smoke, Please STOP! Call for help. Follow-up with: Olayinka Benites MD [Provider Admit Priv/Credential] - 2 Weeks
--- NOTE | 2023-12-24 08:34 | DISCHARGE SUMMARY ---
"Discharge Summary Admit Date: 12/22/23 Discharge Date: 12/24/23 Discharging Provider: Olayinka Benites MD Code Status: Attempt Resuscitation Condition at Discharge: Good Discharge Disposition: 01 Home, Self Care - DIAGNOSES Admission Diagnoses: Left ankle fracture Discharge Diagnoses with Status of Each Condition: Left ankle fracture - improved postop - HPI History of Present Illness: See Admission note - CONSULTS | PROCEDURES Procedures: ORIF left ankle fracture - HOSPITAL COURSE Hospital Course: After admission, we obtained required equipment from orthopedic reprographics technician by the day after admission. Proceeded to ORIF of fracture. Benign post op course. bY pod#2, SHE WAS COMFORTABLE AND INDEPENDENT , WALKER AMBULATION - nwb ON SPLINTED LEFT LEG. RTC in 2-[address] BENITES for wound check and casting after repeat XR> - ALLERGIES Allergies/Adverse Reactions: Allergies Allergy/AdvReac Type Severity Reaction Status Date / Time No Known Drug Allergies Allergy Verified 10/12/23 14:28 - MEDICATIONS Home Medications: Ambulatory Orders Medication Instructions Recorded Confirmed amLODIPine [Norvasc] 5 mg PO DAILY 11/19/20 12/23/23 Losartan Potassium [Cozaar] 100 mg PO DAILY 03/02/23 12/23/23 hydroCHLOROthiazide [Hydrodiuril] 12.5 mg PO DAILY 03/02/23 12/23/23 Zoledronic Acid 5Mg/100Ml Bag 5 mg IV ONCE 12/23/23 12/23/23 [Reclast 5 mg/100 ml Bag] oxyCODONE [Roxicodone] 5 mg PO Q4-6H #20 tablet 12/24/23 - LABS Result Diagrams: 12/23/23 17:46 12/22/23 21:51"
[2023-12-24] MEDS: MORPHINE 2 MG/ML CARPUJECT IVP PRN ×2 (11:33→16:12)
[2023-12-24 16:18] VITALS: BP 109/74; O2SAT 96
== END 2023-12-24 17:19 | disposition home or self-care (01) | DRG 494 ==
LOC: EDUNIT# → ED 20:22 → MS2 23:20
PROVIDERS: ADMIT Orthopaedic Surgery; ATTEND Orthopaedic Surgery
PROC: 0QSH0ZZ Reposition Left Tibia, Open Approach (ICD-10-PCS; 2023-12-23)
PROC: 0QSK04Z Reposition Left Fibula with Internal Fixation Device, Open Approach (ICD-10-PCS; principal; 2023-12-23 13:00)
DX: S82.832A Other fracture of upper and lower end of left fibula, initial encounter for closed fracture (principal); S82.302A Unspecified fracture of lower end of left tibia, initial encounter for closed fracture; S82.872A Displaced pilon fracture of left tibia, initial encounter for closed fracture; W19.XXXA Unspecified fall, initial encounter; F30.8 Other manic episodes; Y92.008 Other place in unspecified non-institutional (private) residence as the place of occurrence of the external cause; M81.0 Age-related osteoporosis without current pathological fracture; Z85.528 Personal history of other malignant neoplasm of kidney; Z90.5 Acquired absence of kidney; I10 Essential (primary) hypertension; F17.200 Nicotine dependence, unspecified, uncomplicated
CPT/HCPCS: 29515; 36415; 73610; 80048; 85014; 85018; 85025; 96374; 97162; 97166; 97530; 99284; 99285; A9270; C1713; G0480; J1170; J2372; J2795; J3490; J7120; 80320

== ENCOUNTER 2023-12-24 17:22 | Outpatient (CLI) | payer MEDICARE | END 2023-12-24 23:59 | disposition home or self-care (01) | LOC: EMS 17:22 | PROVIDERS: ATTEND Orthopaedic Surgery | DX: S82.202A Unspecified fracture of shaft of left tibia, initial encounter for closed fracture (principal); S82.402A Unspecified fracture of shaft of left fibula, initial encounter for closed fracture; W18.30XA Fall on same level, unspecified, initial encounter | CPT/HCPCS: A0425; A0428 ==

== ENCOUNTER 2024-01-14 11:00 | Outpatient (CLI) | payer MEDICARE ==
--- NOTE | 2024-01-14 17:36 | XRAY Report ---
PROCEDURE: Ankle 3 View LT INDICATIONS: LEFT ANKLE FRACTURE TECHNIQUE: 3 views of the ankle were acquired. COMPARISON: 12/22/2023. FINDINGS: Bones: Interval postsurgical changes of open reduction and internal fixation of comminuted distal le ft fibular fracture with lateral plate and screw fixation. There is also improved alignment of commin uted distal left tibial fracture. Visualized ankle mortise appears stable. Other osseous structures a ppear intact. Soft tissues: No significant tibiotalar joint effusion. Patient is in a posterior splint. Lateral sk in marcello noted along the left ankle. IMPRESSION: Status post interval open reduction and internal fixation of comminuted distal left fibular fracture in normal postsurgical alignment. No acute hardware complication seen. Improved alignment of comminuted distal left tibial fracture. Reviewed by: Pop Gonzales MD on 01/14/2024 5:34 PM PST Approved by: Pop Gonzales MD on 01/14/2024 5:34 PM PST Station ID: [id number]
== END 2024-01-14 23:59 | disposition home or self-care (01) ==
LOC: DI.WOS 11:00
PROVIDERS: ATTEND Orthopaedic Surgery
DX: S82.832D Other fracture of upper and lower end of left fibula, subsequent encounter for closed fracture with routine healing (principal)

== ENCOUNTER 2024-01-18 08:45 | Outpatient (CLI) | payer MEDICARE ==
--- NOTE | 2024-01-18 15:45 | XRAY Report ---
PROCEDURE: Ankle 3 View LT INDICATIONS: LEFT ANKLE FRACTURE/ORIF TECHNIQUE: 3 views of the ankle were acquired. COMPARISON: 01/14/2024 FINDINGS: Bones: Stable changes of a fibula ORIF, with screw and plate hardware fixation. Stable alignment and appearance of the distal tibia fracture and tibia metadiaphysis fracture. Soft tissues: Small tibiotalar joint effusion. Achilles tendon appears normal. IMPRESSION: Unchanged alignment of the distal fibula and tibia fractures, status post fibula ORIF. Reviewed by: Dylon Palencia MD on 01/18/2024 3:43 PM PST Approved by: Dylon Palencia MD on 01/18/2024 3:43 PM PST Station ID: [id number]
== END 2024-01-18 23:59 | disposition home or self-care (01) ==
LOC: DI.WOS 08:45
PROVIDERS: ATTEND Orthopaedic Surgery
DX: S82.832A Other fracture of upper and lower end of left fibula, initial encounter for closed fracture (principal); S82.302A Unspecified fracture of lower end of left tibia, initial encounter for closed fracture

== ENCOUNTER 2024-02-25 10:36 | Outpatient (CLI) | payer MEDICARE ==
--- NOTE | 2024-02-25 16:51 | XRAY Report ---
PROCEDURE: Ankle 3 View LT INDICATIONS: LEFT ANKLE FRACTURE TECHNIQUE: 3 views of the ankle were acquired. COMPARISON: X-ray left ankle, 12/22/2023, 01/14/2024, 01/18/2024. FINDINGS: Bones: ORIF of distal fibular fracture with a surgical plate and multiple surgical screws, unchanged . There is a healing distal tibial metaphyseal fracture with callus formation. Ankle mortise is norm ally aligned. No suspicious bony lesions. Soft tissues: Small tibiotalar joint effusion. Achilles tendon appears normal. IMPRESSION: 1. Healing distal tibial and fibular fractures. 2. Postsurgical changes. Reviewed by: Clementine Álvarez MD on 02/25/2024 4:49 PM PDT Approved by: Clementine Álvarez MD on 02/25/2024 4:49 PM PDT Station ID: [id number]
== END 2024-02-25 23:59 | disposition home or self-care (01) ==
LOC: DI.WOS 10:36
PROVIDERS: ATTEND Orthopaedic Surgery
DX: S82.302D Unspecified fracture of lower end of left tibia, subsequent encounter for closed fracture with routine healing (principal); S82.832D Other fracture of upper and lower end of left fibula, subsequent encounter for closed fracture with routine healing

== ENCOUNTER 2024-03-21 02:23 | Outpatient (CLI) | payer MEDICARE | END 2024-03-21 23:59 | disposition short-term general hospital (02) | LOC: EMS 02:23 | DX: S99.911A Unspecified injury of right ankle, initial encounter (principal); W01.0XXA Fall on same level from slipping, tripping and stumbling without subsequent striking against object, initial encounter; Y93.01 Activity, walking, marching and hiking; Y92.008 Other place in unspecified non-institutional (private) residence as the place of occurrence of the external cause | CPT/HCPCS: A0425; A0427 ==

== ENCOUNTER 2024-03-28 11:27 | Day surgery (SDC) | payer MEDICARE ==
[2024-03-28] MEDS ORDERED: ceFAZolin 2 GM VIAL ONE (11:46)
[2024-03-28] MEDS: ACETAMINOPHEN 500 MG TABLET PO ONE (11:54)
--- NOTE | 2024-03-28 12:19 | ANESTHESIA ---
Pre-Anesthesia VS, & Labs - Diagnosis displaced fx of R tibia fibula - Procedure ORIF R tibia with rodding, screws Vital Signs: Temp Pulse Resp BP Pulse Ox O2 Flow Rate 36.5 C 85 13 122/56 L 99 03/28/24 12:12 03/28/24 12:12 03/28/24 12:12 03/28/24 12:12 03/28/24 12:12 Height: 54 ft Weight (kg): 57 kg Body Mass Index: 0.1 BMI Classification: Underweight - NPO >8 hours Last Fluid Intake: sips with tylenol - Is Patient ?: No - Lab Results Lab results reviewed: Yes Home Medications and Allergies Home Medications: Ambulatory Orders hydroCHLOROthiazide [Hydrodiuril] 15 mg PO DAILY 03/28/24 Losartan Potassium [Cozaar] 100 mg PO DAILY 03/02/23 hydroCHLOROthiazide [Hydrodiuril] 15 mg PO DAILY 03/28/24 Allergies/Adverse Reactions: Allergies Allergy/AdvReac Type Severity Reaction Status Date / Time No Known Drug Allergies Allergy Verified 10/12/23 14:28 Anes History & Medical History - Anesthetic History Anesthesia Complications: reports: No previous complications Family history of Anesthesia Complications: Denies Family history of Malignant Hyperthermia: Denies - Medical History Cardiovascular: reports: Hypertension Pulmonary: reports: None Gastrointestinal: reports: Chronic diarrhea, Hemorrhoids Urinary: reports: None Neuro: reports: None Musculoskeletal: reports: Osteoporosis Endocrine/Autoimmune: reports: Other Blood Disorders: reports: None Skin: reports: None Smoking Status: Former smoker - Surgical History General: reports: Colonoscopy, Other Cardiothoracic: reports: Other Gynecologic: reports: Hysterectomy Orthopedic: reports: Other Exam General: Alert, Oriented x3, Cooperative Mouth Openin Fingerbreadth Neck Mobility: Normal Mallampati classification: II Respiratory: Lungs clear, Normal breath sounds, No respiratory distress Cardiovascular: Regular rate Neurological: Normal speech Mental/Cognitive Status: Alert/Oriented X3, Normal for patient Plan Anesthesia Type: General Consent for Procedure(s) Verified and Reviewed: Yes Code Status: Attempt Resuscitation ASA classification: 2-Mild systemic disease Is this case an emergency?: Yes
[2024-03-28] MEDS ORDERED: ONDANSETRON 4 MG/2 ML VIAL IVP PRN ×2 (12:27→16:02)
[2024-03-28] MEDS ORDERED: METOCLOPRAMIDE 10 MG/2 ML VIAL IVP PRN (12:27)
[2024-03-28] MEDS ORDERED: MORPHINE 2 MG/ML CARPUJECT IVP PRN (12:27)
[2024-03-28] MEDS ORDERED: ePHEDrine 50 MG/ML VIAL IVP PRN (12:27)
[2024-03-28] MEDS ORDERED: NALOXONE 0.4 MG/ML VIAL IVP PRN (12:27)
[2024-03-28] MEDS ORDERED: fentaNYL 100 MCG/2 ML VIAL IVP PRN (12:27)
[2024-03-28] MEDS ORDERED: ATROPINE ABBOJECT 1 MG/10 ML SYRINGE IVP PRN (12:27)
[2024-03-28] MEDS: LACTATED RINGERS 1,000 ML IV ONE ×2 (12:28→15:58)
[2024-03-28] MEDS ORDERED: LIDOCAINE-PF 2% 10 ML AMP SUBQ ONE (12:42)
[2024-03-28] MEDS ORDERED: PROPOFOL 200 MG/20 ML VIAL IVP ONE (12:42)
[2024-03-28] MEDS ORDERED: MIDAZOLAM 2 MG/2 ML VIAL ONE (12:42)
[2024-03-28] MEDS ORDERED: fentaNYL 100 MCG/2 ML VIAL ONE ×3 (12:42→15:03)
[2024-03-28] MEDS ORDERED: BUPIVACAINE 0.5% PF 10 ML VIAL ONE (12:54)
[2024-03-28] MEDS ORDERED: VANCOMYCIN 1 GM VIAL ONE (12:56)
[2024-03-28] MEDS ORDERED: LIDOCAINE-MPF 1% 30 ML VIAL ONE (12:56)
[2024-03-28] MEDS ORDERED: LACTATED RINGERS 1,000 ML IV SCH (13:00)
[2024-03-28] MEDS ORDERED: DEXAMETHASONE 4 MG/ML VIAL ONE (13:23)
[2024-03-28] MEDS ORDERED: ONDANSETRON 4 MG/2 ML VIAL ONE (13:23)
[2024-03-28] MEDS ORDERED: PHENYLEPHRINE HCL 0.5 MG/5 ML AMPULE ONE ×2 (13:26→14:56)
[2024-03-28] MEDS ORDERED: SODIUM CHLORIDE 0.9% 10 ML VIAL IVP ONE (13:36)
[2024-03-28] MEDS: LIDOCAINE-MPF 1% 30 ML VIAL IM ONE (14:03)
[2024-03-28] MEDS: BUPIVACAINE 0.5% PF 10 ML VIAL IM ONE (14:04)
[2024-03-28] MEDS ORDERED: HYDROmorphone 1 MG/ML CARPUJECT ONE ×2 (14:10→16:13)
--- NOTE | 2024-03-28 15:40 | OPERATIVE REPORT ---
Operative Report - General Procedure Date: 03/28/24 Planned Procedure: Open reduction internal fixation right tibia-fibula shaft fractures with intramedullary nail/screws Pre-Op Diagnosis: Closed,Displaced distal tibia and fibular shaft fractures right leg Procedure Performed: Open duction internal fixation right tibia utilizing [employer] 10 x 32 cm locked intramedullary nail, 3 distal locking screws and 2 proximal locking screws Post Op Diagnosis: Same as preoperative diagnosis - Procedure Note Primary Surgeon: Reese Lou MD Secondary Surgeon: Ijeoma Wright PAC Anesthesia Provider: Rikki Santillan CRNA Anesthesia Technique: General ET tube Estimated Blood Loss (mL): 50 Indications: This is a 64-year-old woman with a history of fall and injury to right leg. This fall occurred at home, fall from standing height. She was seen in the emergency room, placed in a long-leg splint and referred to our office where she is evaluated and given her treatment alternatives. She preferred surgical stabilization with an intramedullary bibi and screws. She did have swelling but no fracture blisters, no compartment syndrome. Her x-rays showed displaced fractures of the distal tibial shaft and proximal fibula. Her general health is complicated by history of cigarette smoking, alcohol use, osteoporosis, fall history and a relatively recent fracture to the left ankle, sustained in November of this year Findings: She had displaced distal shaft fracture involving the right tibia, proximal third right fibula. There was some comminution at the fracture site of the tibia. Complications: None - Other Other Information/Narrative: The patient was brought to the operating room. She was placed in supine position. After general endotracheal anesthesia been obtained, a foam bolster was placed beneath the right leg, bump beneath the right buttock. The right lower extremity was prepped and draped in a sterile manner in the usual fashion. The C-arm image intensifier was covered with sterile drape. A timeout procedure was performed by the entire operating room team and all were in agreement. No tourniquet was utilized. A suprapatellar semiextended approach was utilized. A 2 and half centimeter incision was made just superior to the patella in line with the shaft of the tibia. The quadriceps tendon was split. The entry cannula was inserted with the knee in full extension and engaged the proximal tibial cortex. The guidepin was inserted so that the entry point was just lateral to the medial tibial spine and just anterior to the intrameniscal ligament. The C-arm image intensifier confirmed satisfactory alignment of the guidepin. The honeycomb device was removed and a long intramedullary guide pin was inserted down the tibial canal, manual reduction of fracture to allow guidepin to cross the fracture into the distal tibiaIntramedullary flexible reaming was then carried out and half millimeter increments from 9 to 11.5 mm. The depth of the guidepin had been measured at 33 cm and was elected to use a 10 x 32 cm intramedullary bibi. This was impacted down to the fracture, concentric reduction and then pushed across the fracture into the distal tibial physis area of the right ankle. The C-arm image intensifier was used to verify AP and lateral reduction before driving the bibi across the fracture. This provided for a nice stable reduction. The long flexible guidepin was removed. 3 distal locking screws were inserted to from medial to lateral and 1 from anterior to posterior. The anterior screw was placed to prevent contact with anterior tendons about the ankle area. 2 proximal locking screws were inserted. The fractures seem to be satisfactory aligned after all of the jigs have been removed. The knee joint was thoroughly irrigated with saline. The quadriceps tendon was repaired with #1 strata fix suture, 3-0 Monocryl subcuticular suture, Dermabond. The locking screws holes were approximated with single 3-0 nylon suture. Xeroform was applied to the locking screw incisions. A well-padded modified Lb Han dressing was applied from foot to knee without fiberglass.. A mild compression dressing was applied to the right leg. She did receive 2 g of Ancef intravenously, tolerated procedure well.A physician behavioral modification assistant was medically necessary to help with prepping and draping, positioning, protection of vital structures, assistance during the procedure including wound closure, dressing and/or splinting.
--- NOTE | 2024-03-28 16:07 | ANESTHESIA POST OP EVALUATION ---
Anesthesia Post Eval - Post Anesthesia Eval Vitals: Last Vital Signs Temp 36.5 C 03/28/24 12:12 Pulse 85 03/28/24 12:12 Resp 13 03/28/24 12:12 BP 122/56 L 03/28/24 12:12 Pulse Ox 99 03/28/24 12:12 O2 Flow Rate CV Function Including HR & BP: Stable Pain Control: Satisfactory Nausea & Vomiting: Negative Mental Status: Baseline Respiratory Status: Airway Patent Hydration Status: Satisfactory Anesthesia Complications: None
[2024-03-28] MEDS: HYDROmorphone 0.5 MG/0.5 ML SYRINGE IVP PRN (16:14)
[2024-03-28] MEDS: oxyCODONE 5 MG TABLET PO PRN (18:20)
--- NOTE | 2024-03-28 20:13 | XRAY Report ---
PROCEDURE: OR C-Arm Procedure INDICATIONS: right leg fx FLUORO TIME: 1:25 MIN TECHNIQUE: Single intraoperative image COMPARISON: X-ray ankle 02/25/2024 FINDINGS: Single intraoperative image demonstrates fixation of the distal tibia. There is relatively good anato nishant alignment and hardware is intact. IMPRESSION: Intraoperative tibial fixation. Reviewed by: Jayda Parra MD on 03/28/2024 8:11 PM PDT Approved by: Jayda Parra MD on 03/28/2024 8:11 PM PDT Station ID: [id number]
[2024-03-28] MEDS: ACETAMINOPHEN 500 MG TABLET PO PRN (20:16)
[2024-03-28] MEDS: fentaNYL 100 MCG/2 ML VIAL IVP PRN (23:12)
[2024-03-29 08:42] VITALS: O2SAT 95
[2024-03-29 11:49] VITALS: BP 94/60
== END 2024-03-29 12:15 | disposition home or self-care (01) ==
LOC: SDS 11:27 → MS2 16:35 → SDS 03-29 12:15
PROVIDERS: ATTEND Orthopaedic Surgery
DX: S82.301A Unspecified fracture of lower end of right tibia, initial encounter for closed fracture (principal); S82.831A Other fracture of upper and lower end of right fibula, initial encounter for closed fracture; W01.0XXA Fall on same level from slipping, tripping and stumbling without subsequent striking against object, initial encounter; H54.8 Legal blindness, as defined in USA; J44.9 Chronic obstructive pulmonary disease, unspecified; I12.9 Hypertensive chronic kidney disease with stage 1 through stage 4 chronic kidney disease, or unspecified chronic kidney disease; N18.30 Chronic kidney disease, stage 3 unspecified; Z87.891 Personal history of nicotine dependence
CPT/HCPCS: 27759; A9270; J1170; J2372; J7120